=== PATIENT | female | born 1940 | race Caucasian/White ===

== ENCOUNTER → 2017-06-19 | Outpatient (CLI) | payer MEDICARE ==
[~2017-06-19] MED LIST: ALLERGY RELIEF10 M1 PO; ATIVAN0.5 MG PO; AUGMENTIN 875875 MG PO; CYCLOBENZAPRINE10 MG PO; EC NAPROSYN500 MG PO; ECOTRIN325 MG PO; ETODOLAC400 MG PO; GLIPIZIDE10 MG PO; GLIPIZIDE2.5 MG PO; GLIPIZIDE5 MG PO; GLUCOTROL10 MG PO; GLUCOTROL5 MG PO; HYDROCODONE BIT1 T11 PO; LOVENOX30 MG/0.3 SC; MAXZIDE PO; METFORMIN1000 MG PO; METFORMIN500 MG PO; MOTRIN 600 MG E4 TAB PO; MOTRIN600 MG PO; NAPROSYN500 MG PO; NORCO 325 MG-51 TAB PO; PERCOCET 325 MG1 TA8 PO; POTASSIUM20 MEQ PO; PRAVACHOL20 MG PO; PRILOSEC20 M1 PO; TAZTIA XT180 MG PO; TIAZAC180 MG PO; TRIAMTERENE/HCT1 TA3 PO; VICODIN 5/500 505 MG PO; ZESTRIL20 MG PO
== END | disposition home or self-care (01) ==
LOC: RAD 10:49
DX: M19.012 Primary osteoarthritis, left shoulder (principal)

== ENCOUNTER 2017-12-17 22:02 | Emergency (ER) | payer MEDICARE ==
[~2017-12-17] VITALS: Ht 160 cm; Wt 74.8 kg
[2017-12-18] MEDS ORDERED: NORCO 5-325 TA1 EACH PO (00:36)
== END 2017-12-18 00:50 | disposition home or self-care (01) ==
LOC: ED 22:02
DX: M25.512 Pain in left shoulder (principal); I10 Essential (primary) hypertension; E11.9 Type 2 diabetes mellitus without complications; Z96.642 Presence of left artificial hip joint; Z90.710 Acquired absence of both cervix and uterus; Z98.890 Other specified postprocedural states; Z79.899 Other long term (current) drug therapy

== ENCOUNTER 2017-12-25 10:27 | Emergency (ER) | payer MEDICARE ==
[~2017-12-25] VITALS: Ht 157.4 cm; Wt 77.1 kg
[~2017-12-25 10:27] MED LIST changes: +NORCO 5-325 TA1 EACH PO
[2017-12-25] MEDS ORDERED: VALTREX1000 MG PO (10:43)
== END 2017-12-25 10:50 | disposition home or self-care (01) ==
LOC: ED 10:27
DX: B02.9 Zoster without complications (principal); I10 Essential (primary) hypertension; E11.9 Type 2 diabetes mellitus without complications; Z98.890 Other specified postprocedural states; Z90.710 Acquired absence of both cervix and uterus; Z96.642 Presence of left artificial hip joint; Z79.899 Other long term (current) drug therapy

== ENCOUNTER 2018-04-15 08:50 | Emergency (ER) | payer MEDICARE ==
[~2018-04-15] VITALS: Ht 165.1 cm; Wt 74.8 kg
--- NOTE | ~2018-04-15 | EKG ---
[place], [place] ELECTROCARDIOGRAM REPORT NAME: GERMAN ORANTES UNIT #: [id number] ROOM: DOCTOR: OSCAR DRAFT REPORT BIRTHDATE: [birth year] [facility] Test Date: 2018-04-15 Test Time: 09:32:45 Pat Name: GERMAN ORANTES Department: Room: Gender: F Order Manager: NIXON : 1940 Requested By: BONIFACIO WANG Order Number: [id number] Reading MD: Measurements Intervals [place] Rate: 71 P: 38 CT: 185 QRS: 11 QRSD: 94 T: 25 QT: 394 QTc: 429 Interpretive Statements Sinus rhythm LVH by voltage No previous ECG available for comparison CM:EKGRPT:ELECTROCARDIOGRAM REPORT 1 1 BONIFACIO MOORE DRAFT REPORT BONIFACIO WANG M.D.
[~2018-04-15 08:50] MED LIST changes: +VALTREX1000 MG PO
[2018-04-15] MEDS ORDERED: DULOXETINE HCL20 MG PO (09:00)
[2018-04-15] MEDS ORDERED: HUMALOG100 UNIT/1 SQ (09:01)
[2018-04-15] MEDS ORDERED: GABAPENTIN400 MG PO (09:01)
[2018-04-15] MEDS ORDERED: VOLTAREN100 GM T (09:02)
[2018-04-15] MEDS ORDERED: ATENOLOL50 M1 PO (09:02)
[2018-04-15] MEDS ORDERED: MONTELUKAST SOD10 MG PO (09:03)
[2018-04-15] MEDS ORDERED: VICTOZA 2-0.6 MG/0.1 SC (09:03)
[2018-04-15] MEDS ORDERED: LANTUS SOL100 UNIT/1 SQ (09:03)
[2018-04-15 09:45] LABS: BASO # 0.1 10*3/uL (0.0-0.1); BASO % 0.5 % (0.0-1.0); EOS # 0.2 10*3/uL (0.0-0.4); EOS % 2.4 % (1.0-4.0); HEMATOCRIT 31.9 % (37.0-47.0); HEMOGLOBIN 10.8 g/dl (12.0-16.0); LYMPH # 1.8 10*3/uL (1.3-4.4); LYMPH % 19.1 % (27.0-41.0); MEAN CELL VOLUME 85.5 fl (81.0-99.0); MEAN CORPUSCULAR HGB CONC 33.9 g/dl (33.0-37.0); MEAN PLATELET VOLUME 10.3 fl (9.6-12.3); MONO # 0.7 10*3/uL (0.1-1.0); NEUT # 6.6 10*3/uL (2.3-7.9); NEUT % 70.1 % (47.0-73.0); PLATELET COUNT AUTOMATED 376 10*3/uL (130-400); RED BLOOD COUNT 3.73 10*6/uL (4.10-5.10); RED CELL DISTRI WIDTH 13.4 % (0-14.5); WHITE BLOOD COUNT 9.4 10*3/uL (4.8-10.8)
[2018-04-15 10:01] LABS: ALBUMIN 3.7 gm/dl (3.1-4.5); CREATININE 1.09 mg/dL (0.55-1.02); POTASSIUM 4.1 mmol/L (3.5-5.1)
[2018-06-10] MEDS ORDERED: AUGMENTIN 875875 MG PO (16:50)
[2018-06-10] MEDS ORDERED: FLONASE ALLERG9.9 ML NAS (16:50)
== END 2018-04-15 12:00 | disposition home or self-care (01) ==
LOC: ED 08:50
PROVIDERS: Emergency Medicine
DX: S62.647A Nondisplaced fracture of proximal phalanx of left little finger, initial encounter for closed fracture (principal); M25.512 Pain in left shoulder; R51 Headache; M54.2 Cervicalgia; R42 Dizziness and giddiness; R11.0 Nausea; I10 Essential (primary) hypertension; E11.9 Type 2 diabetes mellitus without complications; Z79.899 Other long term (current) drug therapy; Z79.4 Long term (current) use of insulin; W01.0XXA Fall on same level from slipping, tripping and stumbling without subsequent striking against object, initial encounter; Y93.89 Activity, other specified; Y92.89 Other specified places as the place of occurrence of the external cause; Y99.8 Other external cause status

== ENCOUNTER 2018-04-21 12:36 | Emergency (ER) | payer OTHER, MEDICARE ==
[~2018-04-21] VITALS: Ht 165.1 cm; Wt 74.8 kg
[~2018-04-21 12:36] MED LIST changes: +ATENOLOL50 M1 PO; +DULOXETINE HCL20 MG PO; +GABAPENTIN400 MG PO; +HUMALOG100 UNIT/1 SQ; +LANTUS SOL100 UNIT/1 SQ; +MONTELUKAST SOD10 MG PO; +VICTOZA 2-0.6 MG/0.1 SC; +VOLTAREN100 GM T
[2018-04-21] MEDS ORDERED: NAPROSYN500 MG PO (13:58)
[2018-04-21] MEDS ORDERED: TYLENOL325 M1 PO (13:58)
[2018-06-10] MEDS ORDERED: FLONASE ALLERG9.9 ML NAS (16:50)
[2018-06-10] MEDS ORDERED: AUGMENTIN 875875 MG PO (16:50)
== END 2018-04-21 14:40 | disposition home or self-care (01) ==
LOC: ED 12:36
DX: M47.892 Other spondylosis, cervical region (principal); M41.86 Other forms of scoliosis, lumbar region; M46.86 Other specified inflammatory spondylopathies, lumbar region; E11.9 Type 2 diabetes mellitus without complications; I10 Essential (primary) hypertension; M81.0 Age-related osteoporosis without current pathological fracture; Z79.4 Long term (current) use of insulin; Z79.899 Other long term (current) drug therapy

== ENCOUNTER → 2018-06-25 | Outpatient (CLI) | payer MEDICARE ==
[~2018-06-25] MED LIST changes: +FLONASE ALLERG9.9 ML NAS; +TYLENOL325 M1 PO
== END | disposition home or self-care (01) ==
LOC: MRI 02:08
DX: R90.82 White matter disease, unspecified (principal)

== ENCOUNTER → 2018-10-25 | Outpatient (CLI) | payer OTHER ==
[~2018-10-25] MED LIST changes: +AMLODIPINE BESY10 MG PO; +AVPAK AZITHROM250 MG PO; +BASAG SOL SC; +COZAAR100 MG PO; +HYDROCHLOROTHIA25 M1 PO; +Hydralazine Hyd25 MG PO; +LORAZEPAM0.5 MG PO; +Lidoderm 5% Patch T; +MUCINEX ER600 MG PO; +PRAVASTATIN SOD20 MG PO; +ROPINIROLE HYDRO1 MG PO; +VITAMIN D31000 UNI1 PO
[2018-10-25 13:03] LABS: ALBUMIN 3.7 gm/dl (3.1-4.5); CREATININE 1.23 mg/dL (0.55-1.02); PHOSPHOROUS 3.8 mg/dL (2.5-4.9); POTASSIUM 4.2 mmol/L (3.5-5.1)
[2018-10-25 13:09] LABS: BASO # 0.1 10*3/uL (0.0-0.1); BASO % 0.7 % (0.0-1.0); EOS # 0.2 10*3/uL (0.0-0.4); EOS % 2.4 % (1.0-4.0); HEMATOCRIT 31.2 % (37.0-47.0); HEMOGLOBIN 10.1 g/dl (12.0-16.0); LYMPH # 1.8 10*3/uL (1.3-4.4); LYMPH % 21.7 % (27.0-41.0); MEAN CELL VOLUME 86.7 fl (81.0-99.0); MEAN CORPUSCULAR HGB 28.1 pg (27.0-31.0); MEAN CORPUSCULAR HGB CONC 32.4 g/dl (33.0-37.0); MEAN PLATELET VOLUME 10.5 fl (9.6-12.3); MONO # 0.7 10*3/uL (0.1-1.0); MONO % 8.5 % (3.0-9.0); NEUT # 5.6 10*3/uL (2.3-7.9); PLATELET COUNT AUTOMATED 397 10*3/uL (130-400); RED CELL DISTRI WIDTH 13.8 % (0-14.5); WHITE BLOOD COUNT 8.5 10*3/uL (4.8-10.8)
[2018-10-25 13:40] LABS: FERRITIN 14.1 ng/mL (10.0-291.0); PTH INTACT 58.4 pg/mL (18.5-88.0); VITAMIN D, 25-HYDROXY 27.5 ng/mL (30-100)
[2018-10-25 16:38] LABS: BILIRUBIN NEGATIVE (NEGATIVE); BLOOD NEGATIVE (NEGATIVE); CLARITY CLEAR (CLEAR); COLOR YELLOW (YELLOW); GLUCOSE NEGATIVE (NEGATIVE); KETONE NEGATIVE (NEGATIVE); LEUKO ESTERASE 1+ (NEGATIVE); NITRITE NEGATIVE (NEGATIVE); SPECIFIC GRAVITY >= 1.030 (1.005-1.030); UROBILINOGEN 0.2 E.U./dl (0.2-1.0)
[2018-10-25 16:46] LABS: BACTERIA 2+; WBC 31-40 wbc/hpf (0-5)
== END | disposition home or self-care (01) ==
LOC: LAB 12:13
PROVIDERS: Internal Medicine Nephrology
DX: E11.22 Type 2 diabetes mellitus with diabetic chronic kidney disease (principal); N18.3 Chronic kidney disease, stage 3 (moderate); D63.1 Anemia in chronic kidney disease; N25.81 Secondary hyperparathyroidism of renal origin; Z79.899 Other long term (current) drug therapy

== ENCOUNTER → 2018-12-05 | Outpatient (CLI) | payer OTHER | END | disposition home or self-care (01) | LOC: CARD 11-15 12:00 | DX: I34.0 Nonrheumatic mitral (valve) insufficiency (principal) ==

== ENCOUNTER → 2019-01-04 | Outpatient (CLI) | payer OTHER ==
[2019-01-04] VITALS (14 sets, daily range): BP systolic 153–180; BP diastolic 56–78
== END | disposition home or self-care (01) ==
LOC: TRNFUSION 00:52
DX: D64.9 Anemia, unspecified (principal); E11.9 Type 2 diabetes mellitus without complications; I10 Essential (primary) hypertension; K21.9 Gastro-esophageal reflux disease without esophagitis; M19.90 Unspecified osteoarthritis, unspecified site; E78.00 Pure hypercholesterolemia, unspecified

== ENCOUNTER → 2019-01-11 | Outpatient (CLI) | payer OTHER ==
--- NOTE | ~2019-01-11 | PF ---
[place], [place] PULMONARY FUNCTION TEST [id number] UNIT #: [id number] ROOM: DOCTOR: LUCERO HINTON MD,GIOVANNI BIRTHDATE: [birth year] DOS: 01/11/2019 PULMONARY FUNCTION TEST ORDERED BY: Dr. Shay Bowman. HISTORY: The patient is a 72-year-old outpatient, female, height of 63 inches, weight of 186 pounds, has a pulmonary function test for diagnosis and assessment of shortness of breath with exertion. There was no past tobacco use. SPIROMETRY: The FVC of 1.71 liters, 68% predicted value. The FEV1 of 1.38 liters as 70% of predicted value. The ratio of FEV1/FVC recorded as 81% post-bronchodilator. No significant improvement noted of any clinical significance. Flow volume loop for assessment with current pulmonary function tests was noted as mild obstructive airway pattern. The lung volumes, thoracic gas volume was recorded as 62%, residual volume of 33%, total lung capacity 59%. The patient's lung diffusion recorded 47% without correction of carbon monoxide hemoglobin value. Airway resistance and conductance were noted normal. FINAL IMPRESSION: Current test was noted with finding consistent with moderate restrictive lung disease to be clinically correlated to the clinical history and radiology data. GIOVANNI BARKER MD CM:PFREPORT:PULMONARY FUNCTION TEST [id number] GIOVANNI HINTON MD
== END | disposition home or self-care (01) ==
LOC: CP 10:20
DX: R06.02 Shortness of breath (principal)

== ENCOUNTER → 2020-01-24 | Outpatient (CLI) | payer MEDICARE ==
[2020-01-24 13:17] LABS: BASO # 0.1 10*3/uL (0.0-0.1); BASO % 0.6 % (0.0-1.0); EOS # 0.3 10*3/uL (0.0-0.4); EOS % 2.8 % (1.0-4.0); HEMATOCRIT 35.2 % (37.0-47.0); LYMPH # 1.7 10*3/uL (1.3-4.4); LYMPH % 18.2 % (27.0-41.0); MEAN CELL VOLUME 91.9 fl (81.0-99.0); MEAN CORPUSCULAR HGB 30.3 pg (27.0-31.0); MEAN PLATELET VOLUME 10.2 fl (9.6-12.3); MONO # 0.7 10*3/uL (0.1-1.0); MONO % 7.7 % (3.0-9.0); NEUT # 6.6 10*3/uL (2.3-7.9); NEUT % 69.4 % (47.0-73.0); PLATELET COUNT AUTOMATED 419 10*3/uL (130-400); RED BLOOD COUNT 3.83 10*6/uL (4.10-5.10); RED CELL DISTRI WIDTH 13.1 % (0-14.5); WHITE BLOOD COUNT 9.4 10*3/uL (4.8-10.8)
[2020-01-24 13:18] LABS: BILIRUBIN NEGATIVE (NEGATIVE); BLOOD TRACE-LYSED (NEGATIVE); CLARITY CLOUDY (CLEAR); COLOR YELLOW (YELLOW); GLUCOSE NEGATIVE (NEGATIVE); KETONE NEGATIVE (NEGATIVE); SPECIFIC GRAVITY 1.015 (1.005-1.030)
[2020-01-24 13:19] LABS: LEUKO ESTERASE 3+ (NEGATIVE); NITRITE POSITIVE (NEGATIVE); UROBILINOGEN 0.2 E.U./dl (0.2-1.0)
[2020-01-24 13:27] LABS: BACTERIA 4+; WBC TNTC wbc/hpf (0-5)
[2020-01-24 13:29] LABS: ALBUMIN 4.2 gm/dl (3.1-4.5); CREATININE 1.95 mg/dL (0.55-1.02); POTASSIUM 4.1 mmol/L (3.5-5.1)
[2020-01-24 13:32] LABS: URINE CREATININE RANDOM 49.6 mg/dL
[2020-01-24 14:23] LABS: FERRITIN 929.2 ng/mL (10.0-291.0); PTH INTACT 68.6 pg/mL (18.5-88.0); VITAMIN D, 25-HYDROXY 18.5 ng/mL (30-100)
== END | disposition home or self-care (01) ==
LOC: LAB 12:38
PROVIDERS: Internal Medicine Nephrology
DX: N18.3 Chronic kidney disease, stage 3 (moderate) (principal); D63.1 Anemia in chronic kidney disease; N25.81 Secondary hyperparathyroidism of renal origin; E11.9 Type 2 diabetes mellitus without complications; Z79.899 Other long term (current) drug therapy

== ENCOUNTER → 2020-06-08 | Outpatient (CLI) | payer MEDICARE | END | disposition home or self-care (01) | LOC: CARD 09:30 | PROVIDERS: ATTEND Internal Medicine Cardiovascular Disease | DX: I08.0 Rheumatic disorders of both mitral and aortic valves (principal) ==

== ENCOUNTER → 2021-01-06 | Outpatient (CLI) | payer MEDICARE ==
[2021-01-06 12:43] LABS: BASO # 0.1 10*3/uL (0.0-0.1); BASO % 0.5 % (0.0-1.0); EOS # 0.4 10*3/uL (0.0-0.4); EOS % 3.8 % (1.0-4.0); HEMATOCRIT 30.2 % (37.0-47.0); LYMPH # 1.2 10*3/uL (1.3-4.4); LYMPH % 10.8 % (27.0-41.0); MEAN CELL VOLUME 98.7 fl (81.0-99.0); MEAN CORPUSCULAR HGB 30.7 pg (27.0-31.0); MEAN CORPUSCULAR HGB CONC 31.1 g/dl (33.0-37.0); MEAN PLATELET VOLUME 9.5 fl (9.6-12.3); MONO % 8.4 % (3.0-9.0); NEUT # 8.5 10*3/uL (2.3-7.9); NEUT % 74.1 % (47.0-73.0); NUCLEATED RED BLOOD CELL 0.2 % (0.0-0.0); PLATELET COUNT AUTOMATED 462 10*3/uL (130-400); RED BLOOD COUNT 3.06 10*6/uL (4.10-5.10); RED CELL DISTRI WIDTH 14.9 % (0-14.5); WHITE BLOOD COUNT 11.5 10*3/uL (4.8-10.8)
== END | disposition home or self-care (01) ==
LOC: LAB 12:26 → US 13:00
PROVIDERS: ATTEND Orthopaedic Surgery
DX: I82.409 Acute embolism and thrombosis of unspecified deep veins of unspecified lower extremity (principal); R06.02 Shortness of breath; R22.42 Localized swelling, mass and lump, left lower limb

== ENCOUNTER → 2021-05-11 | Outpatient (CLI) | payer MEDICARE | END | disposition home or self-care (01) | LOC: CARD 04-23 14:00 | PROVIDERS: ATTEND Physician Assistant | DX: R01.1 Cardiac murmur, unspecified (principal) ==

== ENCOUNTER 2021-08-16 13:30 | Emergency (ER) | payer MEDICARE ==
[~2021-08-16] VITALS: Ht 165.1 cm; Wt 90.7 kg
== END 2021-08-16 16:54 | disposition home or self-care (01) ==
LOC: ED 13:30
DX: S82.831A Other fracture of upper and lower end of right fibula, initial encounter for closed fracture (principal); Z79.899 Other long term (current) drug therapy; Z90.710 Acquired absence of both cervix and uterus; Z98.890 Other specified postprocedural states; W18.39XA Other fall on same level, initial encounter; Y93.89 Activity, other specified; Y92.89 Other specified places as the place of occurrence of the external cause; Y99.8 Other external cause status

== ENCOUNTER → 2021-09-13 | Outpatient (CLI) | payer SELFPAY | END | disposition home or self-care (01) | LOC: ORTHO 00:17 | PROVIDERS: ATTEND Orthopaedic Surgery | DX: R22.42 Localized swelling, mass and lump, left lower limb (principal); M77.31 Calcaneal spur, right foot ==

== ENCOUNTER → 2021-10-18 | Outpatient (CLI) | payer SELFPAY | END | disposition home or self-care (01) | LOC: ORTHO 00:36 | PROVIDERS: ATTEND Orthopaedic Surgery | DX: S82.831D Other fracture of upper and lower end of right fibula, subsequent encounter for closed fracture with routine healing (principal); X58.XXXD Exposure to other specified factors, subsequent encounter ==

== ENCOUNTER 2022-06-09 12:24 | Inpatient (IN) | payer MEDICARE ==
[~2022-06-09] VITALS: Ht 165.1 cm; Wt 91.7 kg
[2022-06-09 12:37] VITALS: BP 141/53
[2022-06-09 12:55] LABS: BASO % 0.3 % (0.0-1.0); EOS # 0.1 10*3/uL (0.0-0.4); HEMATOCRIT 24.1 % (37.0-47.0); LYMPH # 1.3 10*3/uL (1.3-4.4); LYMPH % 11.2 % (27.0-41.0); MEAN CELL VOLUME 93.4 fl (81.0-99.0); MEAN CORPUSCULAR HGB 30.2 pg (27.0-31.0); MEAN CORPUSCULAR HGB CONC 32.4 g/dl (33.0-37.0); MONO # 0.6 10*3/uL (0.1-1.0); MONO % 4.9 % (3.0-9.0); NEUT # 9.4 10*3/uL (2.3-7.9); NEUT % 81.6 % (47.0-73.0); PLATELET COUNT AUTOMATED 367 10*3/uL (130-400); RED BLOOD COUNT 2.58 10*6/uL (4.10-5.10); RED CELL DISTRI WIDTH 15.9 % (0-14.5); WHITE BLOOD COUNT 11.5 10*3/uL (4.8-10.8)
[2022-06-09 13:09] LABS: ACT PARTIAL THROMBO TIME 26.8 SECONDS (20.0-32.1)
[2022-06-09 13:12] LABS: ALKALINE PHOSPHATASE 63 U/L (45-117); BUN 54 mg/dl (7-24); CHLORIDE 105 mmol/L (98-107); CREATININE 2.76 mg/dL (0.55-1.02); LIPASE 43 U/L (73-393); POTASSIUM 4.2 mmol/L (3.5-5.1); SGPT/ALT 44 U/L (12-78); SODIUM 133 mmol/L (136-145); TOTAL PROTEIN 6.5 gm/dL (6.4-8.2)
[2022-06-09 15:05] VITALS: BP 131/42
[2022-06-09 19:59] VITALS: BP 143/55
[2022-06-09 21:00] VITALS: BP 150/58
[2022-06-10] VITALS (11 sets, daily range): BP systolic 114–173; BP diastolic 45–70
[2022-06-10 06:37] LABS: BILIRUBIN Negative (Negative); BLOOD Negative (Negative); CLARITY Clear (Clear); COLOR Yellow (Yellow); GLUCOSE Negative (Negative); KETONE Negative (Negative); LEUKO ESTERASE Trace (Negative); NITRITE Negative (Negative); SPECIFIC GRAVITY 1.015 (1.001-1.030); UROBILINOGEN 0.2 E.U./dl (0.0-1.0)
[2022-06-10 07:08] LABS: HEMATOCRIT 21.9 % (37.0-47.0); MEAN CELL VOLUME 94.4 fl (81.0-99.0); MEAN CORPUSCULAR HGB 29.7 pg (27.0-31.0); MEAN CORPUSCULAR HGB CONC 31.5 g/dl (33.0-37.0); MEAN PLATELET VOLUME 10.3 fl (9.6-12.3); PLATELET COUNT AUTOMATED 326 10*3/uL (130-400); RED BLOOD COUNT 2.32 10*6/uL (4.10-5.10); RED CELL DISTRI WIDTH 15.8 % (0-14.5); WHITE BLOOD COUNT 8.6 10*3/uL (4.8-10.8)
[2022-06-10 07:16] LABS: CREATININE 2.65 mg/dL (0.55-1.02); POTASSIUM 3.7 mmol/L (3.5-5.1); TOTAL PROTEIN 5.9 gm/dL (6.4-8.2)
[2022-06-10 07:17] LABS: MANUAL DIFF REFLEX YES
[2022-06-10 07:36] LABS: BACTERIA 2+; CALCIUM OXALATE CRYSTALS 2+; WBC 16-20 wbc/hpf (0-5)
[2022-06-10 07:38] LABS: BASOPHILS 1 % (0-1); TOTAL CELLS COUNTED 100 #CELLS
[2022-06-10 07:39] LABS: PLATELET SUFFICIENCY NORMAL (NORMAL)
[2022-06-10] MEDS ORDERED: CALPHRON667 MG PO (08:35)
[2022-06-10] MEDS ORDERED: BUMETANIDE1 MG PO (08:35)
[2022-06-10] MEDS ORDERED: Rocaltrol0.25 MCG PO (08:35)
[2022-06-10] MEDS ORDERED: KLOR-CON M1010 ME1 PO (08:36)
[2022-06-10] MEDS ORDERED: TOUJEO SOL300 UNIT/1 SQ (08:36)
[2022-06-10] MEDS ORDERED: HYDROCODONE-AC1 EAC1 PO (08:37)
[2022-06-10] MEDS ORDERED: HUMALOG100 UNIT/1 SC (08:38)
[2022-06-10] MEDS ORDERED: COREG12.5 M1 PO (09:45)
[2022-06-11] VITALS: BP 149/54; BP 183/56
[2022-06-11 06:00] LABS: CREATININE 2.29 mg/dL (0.55-1.02); POTASSIUM 3.8 mmol/L (3.5-5.1)
[2022-06-11 06:11] LABS: BASO # 0.1 10*3/uL (0.0-0.1); BASO % 0.6 % (0.0-1.0); EOS # 0.2 10*3/uL (0.0-0.4); EOS % 1.8 % (1.0-4.0); HEMATOCRIT 24.2 % (37.0-47.0); LYMPH # 1.3 10*3/uL (1.3-4.4); LYMPH % 14.1 % (27.0-41.0); MEAN CELL VOLUME 93.4 fl (81.0-99.0); MEAN CORPUSCULAR HGB 30.1 pg (27.0-31.0); MEAN CORPUSCULAR HGB CONC 32.2 g/dl (33.0-37.0); MEAN PLATELET VOLUME 10.9 fl (9.6-12.3); MONO # 0.9 10*3/uL (0.1-1.0); MONO % 9.6 % (3.0-9.0); NEUT # 6.8 10*3/uL (2.3-7.9); NEUT % 72.1 % (47.0-73.0); PLATELET COUNT AUTOMATED 345 10*3/uL (130-400); RED BLOOD COUNT 2.59 10*6/uL (4.10-5.10); RED CELL DISTRI WIDTH 16.2 % (0-14.5); WHITE BLOOD COUNT 9.5 10*3/uL (4.8-10.8)
[2022-06-11 08:00] VITALS: BP 141/50
[2022-06-11 12:00] VITALS: BP 140/48
[2022-06-11 16:00] VITALS: BP 146/56
[2022-06-11 20:00] VITALS: BP 159/51
[2022-06-12] VITALS: BP 183/56
[2022-06-12 06:23] LABS: BASO # 0.1 10*3/uL (0.0-0.1); BASO % 0.6 % (0.0-1.0); EOS # 0.2 10*3/uL (0.0-0.4); EOS % 1.9 % (1.0-4.0); HEMATOCRIT 23.2 % (37.0-47.0); LYMPH # 1.2 10*3/uL (1.3-4.4); LYMPH % 11.9 % (27.0-41.0); MEAN CELL VOLUME 93.9 fl (81.0-99.0); MEAN CORPUSCULAR HGB CONC 31.9 g/dl (33.0-37.0); MEAN PLATELET VOLUME 10.3 fl (9.6-12.3); MONO # 0.9 10*3/uL (0.1-1.0); MONO % 8.4 % (3.0-9.0); NEUT # 7.7 10*3/uL (2.3-7.9); PLATELET COUNT AUTOMATED 337 10*3/uL (130-400); RED BLOOD COUNT 2.47 10*6/uL (4.10-5.10); RED CELL DISTRI WIDTH 16.1 % (0-14.5); WHITE BLOOD COUNT 10.3 10*3/uL (4.8-10.8)
[2022-06-12 06:36] LABS: CREATININE 2.13 mg/dL (0.55-1.02); POTASSIUM 3.7 mmol/L (3.5-5.1)
[2022-06-12 08:00] VITALS: BP 156/56
[2022-06-12 12:00] VITALS: BP 135/52
[2022-06-12 16:00] VITALS: BP 137/54
[2022-06-12 20:00] VITALS: BP 156/51
[2022-06-13] VITALS: BP 149/43
[2022-06-13 07:25] LABS: BASO # 0.1 10*3/uL (0.0-0.1); BASO % 0.5 % (0.0-1.0); EOS # 0.3 10*3/uL (0.0-0.4); EOS % 3.2 % (1.0-4.0); HEMATOCRIT 22.7 % (37.0-47.0); LYMPH # 1.4 10*3/uL (1.3-4.4); LYMPH % 14.9 % (27.0-41.0); MEAN CELL VOLUME 95.4 fl (81.0-99.0); MEAN CORPUSCULAR HGB 29.8 pg (27.0-31.0); MEAN CORPUSCULAR HGB CONC 31.3 g/dl (33.0-37.0); MEAN PLATELET VOLUME 10.7 fl (9.6-12.3); MONO # 0.9 10*3/uL (0.1-1.0); MONO % 10.1 % (3.0-9.0); NEUT # 6.4 10*3/uL (2.3-7.9); NEUT % 68.9 % (47.0-73.0); PLATELET COUNT AUTOMATED 337 10*3/uL (130-400); RED BLOOD COUNT 2.38 10*6/uL (4.10-5.10); RED CELL DISTRI WIDTH 16.2 % (0-14.5); WHITE BLOOD COUNT 9.3 10*3/uL (4.8-10.8)
[2022-06-13 07:43] LABS: CREATININE 1.96 mg/dL (0.55-1.02); POTASSIUM 3.5 mmol/L (3.5-5.1)
[2022-06-13 08:00] VITALS: BP 135/43
[2022-06-13 12:00] VITALS: BP 126/58
[2022-06-13 16:00] VITALS: BP 127/35
[2022-06-13 20:00] VITALS: BP 154/45
[2022-06-14] VITALS (7 sets, daily range): BP systolic 123–143; BP diastolic 31–62
[2022-06-14] MEDS ORDERED: DULOXETINE HCL20 MG PO (00:54)
[2022-06-14] MEDS ORDERED: VITAMIN D350 MC2 PO (00:54)
[2022-06-14 06:31] LABS: MEAN CELL VOLUME 96.5 fl (81.0-99.0); MEAN CORPUSCULAR HGB 29.8 pg (27.0-31.0); MEAN CORPUSCULAR HGB CONC 30.9 g/dl (33.0-37.0); MEAN PLATELET VOLUME 10.4 fl (9.6-12.3); PLATELET COUNT AUTOMATED 321 10*3/uL (130-400); RED BLOOD COUNT 2.28 10*6/uL (4.10-5.10); RED CELL DISTRI WIDTH 16.2 % (0-14.5); WHITE BLOOD COUNT 9.5 10*3/uL (4.8-10.8)
[2022-06-14 06:33] LABS: CREATININE 2.18 mg/dL (0.55-1.02); POTASSIUM 3.9 mmol/L (3.5-5.1)
[2022-06-14 06:37] LABS: MANUAL DIFF REFLEX YES
[2022-06-14 07:21] LABS: BASOPHILS 1 % (0-1); OVALOCYTES FEW; PLATELET SUFFICIENCY NORMAL (NORMAL); POLYCHROMASIA SLIGHT; TOTAL CELLS COUNTED 100 #CELLS
[2022-06-14] MEDS ORDERED: BUMETANIDE2 MG PO (14:14)
[2022-06-14] MEDS ORDERED: Carafate1 GM PO (14:14)
[2022-06-14] MEDS ORDERED: DOXYCYCLINE HY100 M3 PO (14:14)
[2022-06-14] MEDS ORDERED: PROTONIX40 MG PO (14:14)
== END 2022-06-14 15:07 | disposition home health service (06) | DRG 291 ==
LOC: ED 12:24 → EDHOLD 14:14 → 5E 14:14
PROVIDERS: Emergency Medicine; Family Medicine; Internal Medicine; Student in an Organized Health Care Education/Training Program; ADMIT Internal Medicine; ATTEND Internal Medicine
PROC: 5A09357 Assistance with Respiratory Ventilation, Less than 24 Consecutive Hours, Continuous Positive Airway Pressure (ICD-10-PCS; 2022-06-09)
PROC: 30233N1 Transfusion of Nonautologous Red Blood Cells into Peripheral Vein, Percutaneous Approach (ICD-10-PCS; principal; 2022-06-10)
PROC: 5A09357 Assistance with Respiratory Ventilation, Less than 24 Consecutive Hours, Continuous Positive Airway Pressure (ICD-10-PCS; 2022-06-12)
PROC: 5A09357 Assistance with Respiratory Ventilation, Less than 24 Consecutive Hours, Continuous Positive Airway Pressure (ICD-10-PCS; 2022-06-13)
DX: I13.0 Hypertensive heart and chronic kidney disease with heart failure and stage 1 through stage 4 chronic kidney disease, or unspecified chronic kidney disease (principal); I50.33 Acute on chronic diastolic (congestive) heart failure; J96.01 Acute respiratory failure with hypoxia; N17.0 Acute kidney failure with tubular necrosis; E44.0 Moderate protein-calorie malnutrition; E87.1 Hypo-osmolality and hyponatremia; N18.4 Chronic kidney disease, stage 4 (severe); E11.22 Type 2 diabetes mellitus with diabetic chronic kidney disease; J44.9 Chronic obstructive pulmonary disease, unspecified; F41.9 Anxiety disorder, unspecified; M81.0 Age-related osteoporosis without current pathological fracture; M47.896 Other spondylosis, lumbar region; E11.65 Type 2 diabetes mellitus with hyperglycemia; D64.9 Anemia, unspecified; E83.41 Hypermagnesemia; M47.812 Spondylosis without myelopathy or radiculopathy, cervical region; J01.90 Acute sinusitis, unspecified; Z90.49 Acquired absence of other specified parts of digestive tract; Z79.4 Long term (current) use of insulin; Z88.8 Allergy status to other drugs, medicaments and biological substances; Z90.710 Acquired absence of both cervix and uterus; Z68.35 Body mass index [BMI] 35.0-35.9, adult

== ENCOUNTER 2022-07-12 08:45 | Emergency (ER) | payer MEDICARE ==
[~2022-07-12] VITALS: Wt 89.4 kg
[~2022-07-12 08:45] MED LIST changes: +BUMETANIDE1 MG PO; +BUMETANIDE2 MG PO; +CALPHRON667 MG PO; +COREG12.5 M1 PO; +Carafate1 GM PO; +DOXYCYCLINE HY100 M3 PO; +HUMALOG100 UNIT/1 SC; +HYDROCODONE-AC1 EAC1 PO; +KLOR-CON M1010 ME1 PO; +PROTONIX40 MG PO; +Rocaltrol0.25 MCG PO; +TOUJEO SOL300 UNIT/1 SQ; +VITAMIN D350 MC2 PO
[2022-07-12 09:22] LABS: BASO % 0.5 % (0.0-1.0); EOS # 0.1 10*3/uL (0.0-0.4); EOS % 0.9 % (1.0-4.0); HEMATOCRIT 23.7 % (37.0-47.0); LYMPH # 1.3 10*3/uL (1.3-4.4); LYMPH % 14.5 % (27.0-41.0); MEAN CELL VOLUME 91.5 fl (81.0-99.0); MEAN CORPUSCULAR HGB 31.7 pg (27.0-31.0); MEAN CORPUSCULAR HGB CONC 34.6 g/dl (33.0-37.0); MEAN PLATELET VOLUME 10.1 fl (9.6-12.3); MONO # 0.6 10*3/uL (0.1-1.0); MONO % 6.2 % (3.0-9.0); NEUT # 6.8 10*3/uL (2.3-7.9); NEUT % 76.9 % (47.0-73.0); PLATELET COUNT AUTOMATED 378 10*3/uL (130-400); RED BLOOD COUNT 2.59 10*6/uL (4.10-5.10); RED CELL DISTRI WIDTH 15.2 % (0-14.5); WHITE BLOOD COUNT 8.8 10*3/uL (4.8-10.8)
[2022-07-12 09:37] LABS: CREATININE 2.27 mg/dL (0.55-1.02); POTASSIUM 4.2 mmol/L (3.4-5.1); TOTAL PROTEIN 6.2 gm/dL (6.0-8.0)
[2022-07-12 10:25] LABS: BILIRUBIN Negative (Negative); BLOOD Negative (Negative); CLARITY Clear (Clear); COLOR Yellow (Yellow); GLUCOSE Negative (Negative); KETONE Negative (Negative); LEUKO ESTERASE Negative (Negative); NITRITE Negative (Negative); SPECIFIC GRAVITY <= 1.005 (1.001-1.030); UROBILINOGEN 0.2 E.U./dl (0.0-1.0)
[2022-07-12 11:15] LABS: RBC 0-2 rbc/hpf (0-2); WBC 0-2 wbc/hpf (0-5)
== END 2022-07-12 11:47 | disposition home or self-care (01) ==
LOC: ED 08:45
PROVIDERS: Family Medicine
DX: R53.1 Weakness (principal); Z88.8 Allergy status to other drugs, medicaments and biological substances; Z90.710 Acquired absence of both cervix and uterus; Z90.49 Acquired absence of other specified parts of digestive tract; Z98.890 Other specified postprocedural states

== ENCOUNTER → 2022-10-28 | Outpatient (CLI) | payer MEDICARE ==
[~2022-10-28] MED LIST changes: +B12 ACTIVE1000 MCG PO; +CARVEDILOL3.125 MG PO; +CARVEDILOL6.25 MG PO; +CENTRUM SILVER1 EAC1 PO; +ELIQUIS5 M1 PO; +GOOD NEIGHBOR L10 MG PO; +HYDRALAZINE10 MG PO; +Humalog SQ; +ISORDIL10 M1 PO; +LOSARTAN POTAS100 M1 PO; +VICTOZA 3-0.6 MG/0.1 SQ; +VITAMIN C1000 M5 PO
== END | disposition home or self-care (01) ==
LOC: TELEHEALTH 01:12
PROVIDERS: ATTEND Internal Medicine
DX: D50.9 Iron deficiency anemia, unspecified (principal); I13.0 Hypertensive heart and chronic kidney disease with heart failure and stage 1 through stage 4 chronic kidney disease, or unspecified chronic kidney disease; E11.22 Type 2 diabetes mellitus with diabetic chronic kidney disease; N18.32 Chronic kidney disease, stage 3b; I50.21 Acute systolic (congestive) heart failure; E78.5 Hyperlipidemia, unspecified; K21.9 Gastro-esophageal reflux disease without esophagitis; Z86.16 Personal history of COVID-19; Z79.899 Other long term (current) drug therapy

== ENCOUNTER → 2022-11-24 | Outpatient (CLI) | payer MEDICARE ==
[2022-11-24 08:25] LABS: HEMATOCRIT 33.8 % (37.0-47.0)
== END | disposition home or self-care (01) ==
LOC: LAB 08:02
PROVIDERS: ATTEND Internal Medicine
DX: N18.31 Chronic kidney disease, stage 3a (principal); I50.21 Acute systolic (congestive) heart failure; D50.0 Iron deficiency anemia secondary to blood loss (chronic)

== ENCOUNTER → 2022-12-08 | Outpatient (CLI) | payer MEDICARE ==
[2022-12-08 07:42] LABS: HEMATOCRIT 34.1 % (37.0-47.0)
[2022-12-08 08:37] LABS: POTASSIUM 4.3 mmol/L (3.4-5.1)
== END | disposition home or self-care (01) ==
LOC: LAB 07:09
PROVIDERS: ATTEND Physician Assistant
DX: N18.32 Chronic kidney disease, stage 3b (principal); I50.21 Acute systolic (congestive) heart failure; D50.0 Iron deficiency anemia secondary to blood loss (chronic)

== ENCOUNTER → 2022-12-22 | Outpatient (CLI) | payer MEDICARE ==
[2022-12-22 13:19] LABS: HEMATOCRIT 34.9 % (37.0-47.0)
== END | disposition home or self-care (01) ==
LOC: LAB 12:59
PROVIDERS: ATTEND Internal Medicine
DX: I50.21 Acute systolic (congestive) heart failure (principal); N18.32 Chronic kidney disease, stage 3b; D50.0 Iron deficiency anemia secondary to blood loss (chronic)

== ENCOUNTER → 2022-12-30 | Outpatient (CLI) | payer MEDICARE | END | disposition home or self-care (01) | LOC: TELEHEALTH 01:56 | PROVIDERS: ATTEND Internal Medicine | DX: D50.0 Iron deficiency anemia secondary to blood loss (chronic) (principal); I50.21 Acute systolic (congestive) heart failure; N18.32 Chronic kidney disease, stage 3b; Z79.899 Other long term (current) drug therapy ==

== ENCOUNTER → 2023-01-05 | Outpatient (CLI) | payer MEDICARE ==
[2023-01-05 08:44] LABS: HEMATOCRIT 32.9 % (37.0-47.0)
[2023-01-05 09:28] LABS: POTASSIUM 4.4 mmol/L (3.4-5.1)
== END | disposition home or self-care (01) ==
LOC: LAB 08:01
PROVIDERS: ATTEND Internal Medicine
DX: I50.21 Acute systolic (congestive) heart failure (principal); N18.32 Chronic kidney disease, stage 3b; D50.0 Iron deficiency anemia secondary to blood loss (chronic)

== ENCOUNTER → 2023-01-19 | Outpatient (CLI) | payer MEDICARE ==
[~2023-01-19] MED LIST changes: +ZITHROMAX TRI-500 M1 PO
[2023-01-19 08:00] LABS: HEMATOCRIT 26.6 % (37.0-47.0)
== END | disposition home or self-care (01) ==
LOC: LAB 07:43
PROVIDERS: ATTEND Internal Medicine
DX: I50.21 Acute systolic (congestive) heart failure (principal); N18.32 Chronic kidney disease, stage 3b; D50.0 Iron deficiency anemia secondary to blood loss (chronic)

== ENCOUNTER → 2023-02-02 | Outpatient (CLI) | payer MEDICARE ==
[2023-02-02 08:41] LABS: BASO % 0.4 % (0.0-1.0); EOS # 0.5 10*3/uL (0.0-0.4); HEMATOCRIT 28.7 % (37.0-47.0); LYMPH # 1.2 10*3/uL (1.3-4.4); LYMPH % 13.2 % (27.0-41.0); MEAN CELL VOLUME 98.6 fl (81.0-99.0); MEAN CORPUSCULAR HGB 31.3 pg (27.0-31.0); MEAN CORPUSCULAR HGB CONC 31.7 g/dl (33.0-37.0); MEAN PLATELET VOLUME 9.9 fl (9.6-12.3); MONO # 0.8 10*3/uL (0.1-1.0); MONO % 8.5 % (3.0-9.0); NEUT # 6.6 10*3/uL (2.3-7.9); NEUT % 70.6 % (47.0-73.0); PLATELET COUNT AUTOMATED 315 10*3/uL (130-400); RED BLOOD COUNT 2.91 10*6/uL (4.10-5.10); WHITE BLOOD COUNT 9.3 10*3/uL (4.8-10.8)
[2023-02-02 08:42] LABS: BILIRUBIN Negative (Negative); BLOOD Negative (Negative); CLARITY Clear (Clear); COLOR Yellow (Yellow); GLUCOSE Negative (Negative); KETONE Negative (Negative); LEUKO ESTERASE 2+ (Negative); NITRITE Negative (Negative); PH 5.5 (4.5-8.0); UROBILINOGEN 0.2 E.U./dl (0.0-1.0)
[2023-02-02 08:49] LABS: URINE CREATININE RANDOM 89.98 mg/dL
[2023-02-02 08:57] LABS: BACTERIA 2+; FINE GRANULAR CAST 0-2; WBC 51-100 wbc/hpf (0-5)
[2023-02-02 08:58] LABS: HYALINE CAST 0-2
[2023-02-02 09:29] LABS: POTASSIUM 4.3 mmol/L (3.4-5.1)
[2023-02-02 09:30] LABS: VITAMIN D, 25-HYDROXY 35.2 ng/mL (30-100)
== END | disposition home or self-care (01) ==
LOC: LAB 07:59
PROVIDERS: ATTEND Internal Medicine Nephrology
DX: E11.22 Type 2 diabetes mellitus with diabetic chronic kidney disease (principal); N18.4 Chronic kidney disease, stage 4 (severe); D63.1 Anemia in chronic kidney disease; N25.81 Secondary hyperparathyroidism of renal origin; D50.0 Iron deficiency anemia secondary to blood loss (chronic); I50.21 Acute systolic (congestive) heart failure; Z79.899 Other long term (current) drug therapy

== ENCOUNTER → 2023-02-16 | Outpatient (CLI) | payer MEDICARE ==
[2023-02-16 08:42] LABS: HEMATOCRIT 29.2 % (37.0-47.0)
== END | disposition home or self-care (01) ==
LOC: LAB 08:16
PROVIDERS: ATTEND Internal Medicine
DX: D50.0 Iron deficiency anemia secondary to blood loss (chronic) (principal); I50.21 Acute systolic (congestive) heart failure; N18.32 Chronic kidney disease, stage 3b

== ENCOUNTER → 2023-02-18 | Outpatient (CLI) | payer MEDICARE | END | disposition home or self-care (01) | LOC: RAD 10:13 | PROVIDERS: ATTEND Specialist | DX: M17.0 Bilateral primary osteoarthritis of knee (principal); M19.011 Primary osteoarthritis, right shoulder; M16.11 Unilateral primary osteoarthritis, right hip; M47.816 Spondylosis without myelopathy or radiculopathy, lumbar region; Z96.642 Presence of left artificial hip joint ==

== ENCOUNTER → 2023-03-02 | Outpatient (CLI) | payer MEDICARE ==
[2023-03-02 08:23] LABS: HEMATOCRIT 29.3 % (37.0-47.0)
== END | disposition home or self-care (01) ==
LOC: LAB 00:59
PROVIDERS: ATTEND Internal Medicine
DX: N18.32 Chronic kidney disease, stage 3b (principal); I50.21 Acute systolic (congestive) heart failure; D50.0 Iron deficiency anemia secondary to blood loss (chronic)

== ENCOUNTER → 2023-03-16 | Outpatient (CLI) | payer MEDICARE ==
[~2023-03-16] MED LIST changes: +HYDROXYCHLOROQ200 M1 PO
[2023-03-16 08:18] LABS: HEMATOCRIT 27.5 % (37.0-47.0)
== END | disposition home or self-care (01) ==
LOC: LAB 07:36
PROVIDERS: ATTEND Internal Medicine
DX: N18.32 Chronic kidney disease, stage 3b (principal); I50.21 Acute systolic (congestive) heart failure; D50.0 Iron deficiency anemia secondary to blood loss (chronic)

== ENCOUNTER → 2023-03-30 | Outpatient (CLI) | payer MEDICARE ==
[2023-03-30 08:34] LABS: HEMATOCRIT 26.3 % (37.0-47.0); MEAN CELL VOLUME 101.2 fl (81.0-99.0); MEAN CORPUSCULAR HGB 32.3 pg (27.0-31.0); MEAN CORPUSCULAR HGB CONC 31.9 g/dl (33.0-37.0); MEAN PLATELET VOLUME 9.2 fl (9.6-12.3); RED BLOOD COUNT 2.6 10*6/uL (4.10-5.10); RED CELL DISTRI WIDTH 14.4 % (0-14.5); WHITE BLOOD COUNT 6.1 10*3/uL (4.8-10.8)
[2023-03-30 09:04] LABS: POTASSIUM 3.6 mmol/L (3.4-5.1); TOTAL PROTEIN 6.5 gm/dL (6.0-8.0)
== END | disposition home or self-care (01) ==
LOC: LAB 08:07
PROVIDERS: Physician Assistant; ATTEND Internal Medicine
DX: I13.0 Hypertensive heart and chronic kidney disease with heart failure and stage 1 through stage 4 chronic kidney disease, or unspecified chronic kidney disease (principal); E11.22 Type 2 diabetes mellitus with diabetic chronic kidney disease; N18.32 Chronic kidney disease, stage 3b; D50.0 Iron deficiency anemia secondary to blood loss (chronic)

== ENCOUNTER → 2023-04-13 | Outpatient (CLI) | payer MEDICARE ==
[~2023-04-13] MED LIST changes: +CIPRO500 MG PO
[2023-04-13 08:43] LABS: HEMATOCRIT 26.8 % (37.0-47.0)
== END | disposition home or self-care (01) ==
LOC: LAB 08:09
PROVIDERS: ATTEND Internal Medicine
DX: I50.21 Acute systolic (congestive) heart failure (principal); N18.32 Chronic kidney disease, stage 3b; D50.0 Iron deficiency anemia secondary to blood loss (chronic)

== ENCOUNTER → 2023-05-05 | Outpatient (CLI) | payer MEDICARE | END | disposition home or self-care (01) | LOC: TELEHEALTH 00:32 | PROVIDERS: ATTEND Internal Medicine Hematology & Oncology | DX: I12.9 Hypertensive chronic kidney disease with stage 1 through stage 4 chronic kidney disease, or unspecified chronic kidney disease (principal); E11.22 Type 2 diabetes mellitus with diabetic chronic kidney disease; N18.9 Chronic kidney disease, unspecified; D63.1 Anemia in chronic kidney disease; Z88.8 Allergy status to other drugs, medicaments and biological substances; Z79.899 Other long term (current) drug therapy ==

== ENCOUNTER → 2023-05-11 | Outpatient (CLI) | payer MEDICARE ==
[2023-05-11 11:45] LABS: BASO % 0.4 % (0.0-1.0); EOS # 0.1 10*3/uL (0.0-0.4); EOS % 1.3 % (1.0-4.0); HEMATOCRIT 26.2 % (37.0-47.0); LYMPH % 10.5 % (27.0-41.0); MEAN CELL VOLUME 100.4 fl (81.0-99.0); MEAN CORPUSCULAR HGB 32.6 pg (27.0-31.0); MEAN CORPUSCULAR HGB CONC 32.4 g/dl (33.0-37.0); MEAN PLATELET VOLUME 9.8 fl (9.6-12.3); MONO # 0.7 10*3/uL (0.1-1.0); MONO % 6.6 % (3.0-9.0); NEUT # 7.8 10*3/uL (2.3-7.9); NEUT % 78.2 % (47.0-73.0); PLATELET COUNT AUTOMATED 306 10*3/uL (130-400); RED BLOOD COUNT 2.61 10*6/uL (4.10-5.10); RED CELL DISTRI WIDTH 14.8 % (0-14.5); WHITE BLOOD COUNT 9.9 10*3/uL (4.8-10.8)
[2023-05-11 11:46] LABS: BILIRUBIN Negative (Negative); BLOOD Negative (Negative); CLARITY Clear (Clear); COLOR Yellow (Yellow); GLUCOSE Negative (Negative); KETONE Negative (Negative); LEUKO ESTERASE 1+ (Negative); NITRITE Negative (Negative); PH 5.5 (4.5-8.0); UROBILINOGEN 0.2 E.U./dl (0.0-1.0)
[2023-05-11 11:56] LABS: URINE CREATININE RANDOM 24.97 mg/dL
[2023-05-11 12:05] LABS: BACTERIA 2+; WBC 41-50 wbc/hpf (0-5); YEAST TRACE
[2023-05-11 12:12] LABS: POTASSIUM 4.2 mmol/L (3.4-5.1)
[2023-05-11 12:16] LABS: VITAMIN D, 25-HYDROXY 38.8 ng/mL (30-100)
== END | disposition home or self-care (01) ==
LOC: LAB 11:09
PROVIDERS: ATTEND Internal Medicine Nephrology
DX: N18.4 Chronic kidney disease, stage 4 (severe) (principal); N25.81 Secondary hyperparathyroidism of renal origin; D63.1 Anemia in chronic kidney disease

== ENCOUNTER → 2023-05-26 | Outpatient (CLI) | payer MEDICARE ==
[2023-05-26 09:30] VITALS: BP 149/62
== END | disposition home or self-care (01) ==
LOC: INJECTION 00:33
PROVIDERS: ATTEND Internal Medicine
DX: N18.30 Chronic kidney disease, stage 3 unspecified (principal); D63.1 Anemia in chronic kidney disease

== ENCOUNTER → 2023-06-09 | Outpatient (CLI) | payer MEDICARE ==
[2023-06-09 11:20] VITALS: BP 179/104
== END | disposition home or self-care (01) ==
LOC: INJECTION 00:16 → TELEHEALTH 09:00
PROVIDERS: ATTEND Internal Medicine Hematology & Oncology
DX: I13.2 Hypertensive heart and chronic kidney disease with heart failure and with stage 5 chronic kidney disease, or end stage renal disease (principal); I50.9 Heart failure, unspecified; E11.22 Type 2 diabetes mellitus with diabetic chronic kidney disease; N18.6 End stage renal disease; D63.1 Anemia in chronic kidney disease; K21.9 Gastro-esophageal reflux disease without esophagitis; J44.9 Chronic obstructive pulmonary disease, unspecified; M19.90 Unspecified osteoarthritis, unspecified site; E78.00 Pure hypercholesterolemia, unspecified; Z99.2 Dependence on renal dialysis; Z90.710 Acquired absence of both cervix and uterus; Z98.890 Other specified postprocedural states

== ENCOUNTER 2023-06-26 14:16 | Emergency (ER) | payer MEDICARE ==
[~2023-06-26] VITALS: Ht 160 cm; Wt 84.4 kg
[2023-06-26 15:34] LABS: BASO % 0.6 % (0.0-1.0); EOS # 0.1 10*3/uL (0.0-0.4); EOS % 1.6 % (1.0-4.0); HEMATOCRIT 31.9 % (37.0-47.0); LYMPH # 0.9 10*3/uL (1.3-4.4); LYMPH % 12.3 % (27.0-41.0); MEAN CELL VOLUME 99.7 fl (81.0-99.0); MEAN CORPUSCULAR HGB 31.9 pg (27.0-31.0); MEAN PLATELET VOLUME 9.8 fl (9.6-12.3); MONO # 0.5 10*3/uL (0.1-1.0); MONO % 7.3 % (3.0-9.0); NEUT # 5.4 10*3/uL (2.3-7.9); NEUT % 76.9 % (47.0-73.0); PLATELET COUNT AUTOMATED 234 10*3/uL (130-400); RED CELL DISTRI WIDTH 14.6 % (0-14.5)
[2023-06-26 15:55] LABS: POTASSIUM 4.9 mmol/L (3.4-5.1); TOTAL PROTEIN 5.9 gm/dL (6.0-8.0)
[2023-06-26] MEDS ORDERED: NORVASC10 MG PO (18:03)
== END 2023-06-26 18:19 | disposition home or self-care (01) ==
LOC: ED 14:16
PROVIDERS: Emergency Medicine
DX: I16.0 Hypertensive urgency (principal); E11.22 Type 2 diabetes mellitus with diabetic chronic kidney disease; I13.0 Hypertensive heart and chronic kidney disease with heart failure and stage 1 through stage 4 chronic kidney disease, or unspecified chronic kidney disease; N18.9 Chronic kidney disease, unspecified; E78.5 Hyperlipidemia, unspecified; K21.9 Gastro-esophageal reflux disease without esophagitis; M19.90 Unspecified osteoarthritis, unspecified site; E78.00 Pure hypercholesterolemia, unspecified; J44.9 Chronic obstructive pulmonary disease, unspecified; I50.9 Heart failure, unspecified; Z88.8 Allergy status to other drugs, medicaments and biological substances; Z90.710 Acquired absence of both cervix and uterus; Z90.49 Acquired absence of other specified parts of digestive tract; Z98.890 Other specified postprocedural states

== ENCOUNTER 2023-07-10 11:02 | Emergency (ER) | payer MEDICARE ==
[~2023-07-10] VITALS: Ht 160 cm; Wt 88.9 kg
[~2023-07-10 11:02] MED LIST changes: +NORVASC10 MG PO
[2023-07-10 12:04] LABS: BASO % 0.4 % (0.0-1.0); EOS # 0.1 10*3/uL (0.0-0.4); EOS % 1.7 % (1.0-4.0); HEMATOCRIT 28.6 % (37.0-47.0); LYMPH # 0.8 10*3/uL (1.3-4.4); LYMPH % 9.6 % (27.0-41.0); MEAN CELL VOLUME 100.4 fl (81.0-99.0); MEAN CORPUSCULAR HGB 30.9 pg (27.0-31.0); MEAN CORPUSCULAR HGB CONC 30.8 g/dl (33.0-37.0); MEAN PLATELET VOLUME 8.9 fl (9.6-12.3); MONO # 0.5 10*3/uL (0.1-1.0); MONO % 6.4 % (3.0-9.0); NEUT # 6.7 10*3/uL (2.3-7.9); NEUT % 80.1 % (47.0-73.0); PLATELET COUNT AUTOMATED 291 10*3/uL (130-400); RED BLOOD COUNT 2.85 10*6/uL (4.10-5.10); RED CELL DISTRI WIDTH 14.1 % (0-14.5); WHITE BLOOD COUNT 8.3 10*3/uL (4.8-10.8)
[2023-07-10 12:14] LABS: ACT PARTIAL THROMBO TIME 27.4 SECONDS (20.0-32.1)
[2023-07-10 12:23] LABS: POTASSIUM 4.9 mmol/L (3.4-5.1); TOTAL PROTEIN 5.8 gm/dL (6.0-8.0)
== END 2023-07-10 14:37 | disposition home or self-care (01) ==
LOC: ED 11:02
PROVIDERS: Nurse Practitioner Family
DX: S49.91XA Unspecified injury of right shoulder and upper arm, initial encounter (principal); I13.0 Hypertensive heart and chronic kidney disease with heart failure and stage 1 through stage 4 chronic kidney disease, or unspecified chronic kidney disease; I50.9 Heart failure, unspecified; D64.9 Anemia, unspecified; Z88.8 Allergy status to other drugs, medicaments and biological substances; F41.9 Anxiety disorder, unspecified; M19.90 Unspecified osteoarthritis, unspecified site; K21.9 Gastro-esophageal reflux disease without esophagitis; E11.65 Type 2 diabetes mellitus with hyperglycemia; E11.22 Type 2 diabetes mellitus with diabetic chronic kidney disease; N18.9 Chronic kidney disease, unspecified; E78.00 Pure hypercholesterolemia, unspecified; J44.9 Chronic obstructive pulmonary disease, unspecified; Z98.890 Other specified postprocedural states; Z90.49 Acquired absence of other specified parts of digestive tract; Z90.710 Acquired absence of both cervix and uterus; W01.0XXA Fall on same level from slipping, tripping and stumbling without subsequent striking against object, initial encounter; Y93.89 Activity, other specified; Y92.009 Unspecified place in unspecified non-institutional (private) residence as the place of occurrence of the external cause; Y99.8 Other external cause status

== ENCOUNTER 2023-08-11 06:12 | Inpatient (IN) | payer MEDICARE ==
[2023-08-11] VITALS (42 sets, daily range): BP systolic 53–179; BP diastolic 21–107
[~2023-08-11] VITALS: Ht 160 cm; Wt 88.5 kg
[~2023-08-11 06:12] MED LIST changes: -KLOR-CON M1010 ME1 PO; +KLOR-CON M2020 ME1 PO
[2023-08-11 06:53] LABS: HEMATOCRIT 34.9 % (37.0-47.0); MEAN CORPUSCULAR HGB 29.8 pg (27.0-31.0); MEAN CORPUSCULAR HGB CONC 29.8 g/dl (33.0-37.0); MEAN PLATELET VOLUME 9.8 fl (9.6-12.3); NUCLEATED RED BLOOD CELL 0.1 10*3/uL (0.0-0.0); NUCLEATED RED BLOOD CELL 0.5 % (0.0-0.0); PLATELET COUNT AUTOMATED 396 10*3/uL (130-400); RED BLOOD COUNT 3.49 10*6/uL (4.10-5.10); RED CELL DISTRI WIDTH 15.8 % (0-14.5); WHITE BLOOD COUNT 12.4 10*3/uL (4.8-10.8)
[2023-08-11 06:54] LABS: MANUAL DIFF REFLEX YES
[2023-08-11 06:58] LABS: ABG BASE EXCESS -12.1 mmol/L (-2.0-2.0); ARTERIAL BLOOD GAS PH 7.146 (7.35-7.45)
[2023-08-11 07:04] LABS: ACT PARTIAL THROMBO TIME 27.2 SECONDS (20.0-32.1)
[2023-08-11 07:05] LABS: POTASSIUM 4.7 mmol/L (3.4-5.1); TOTAL PROTEIN 6.7 gm/dL (6.0-8.0)
[2023-08-11 07:28] LABS: BASOPHILS 1 % (0-1); PLATELET SUFFICIENCY NORMAL (NORMAL); POLYCHROMASIA SLIGHT; TOTAL CELLS COUNTED 100 #CELLS
[2023-08-11 07:29] LABS: BURR CELLS FEW; OVALOCYTES FEW
[2023-08-11 07:55] LABS: BILIRUBIN Negative (Negative); BLOOD Trace-Lysed (Negative); CLARITY Cloudy (Clear); COLOR Yellow (Yellow); GLUCOSE 2+ (Negative); KETONE Trace (Negative); LEUKO ESTERASE 2+ (Negative); NITRITE Negative (Negative); UROBILINOGEN 0.2 E.U./dl (0.0-1.0)
[2023-08-11 08:04] LABS: BACTERIA 4+; WBC TNTC wbc/hpf (0-5)
[2023-08-11 08:12] LABS: URINE AMPHETAMINES Negative (1000ng/ml); URINE BARBITURATES Negative (200ng/ml); URINE BENZODIAZEPINES Negative (200ng/ml); URINE CANNABINOIDS (THC) Negative (50ng/ml); URINE COCAINE Negative (300ng/ml); URINE METHADONE Negative (300ng/ml); URINE OPIATES Positive (300ng/ml); URINE PHENCYCLIDINE Negative (25ng/ml)
[2023-08-11 12:09] LABS: ARTERIAL BLOOD GAS PH 7.258 (7.35-7.45)
[2023-08-11 12:11] LABS: ABG BASE EXCESS -8.8 mmol/L (-2.0-2.0)
[2023-08-11] MEDS ORDERED: COREG12.5 M1 PO (13:39)
[2023-08-11] MEDS ORDERED: ALLERGY RELIE15.8 ML NAS (13:50)
[2023-08-11] MEDS ORDERED: NORVASC2.5 MG PO (13:52)
[2023-08-11 18:12] LABS: ARTERIAL BLOOD GAS PH 7.348 (7.35-7.45)
[2023-08-12] VITALS (41 sets, daily range): BP systolic 116–150; BP diastolic 41–78
[2023-08-12 06:03] LABS: FREE T4 1.03 ng/dl (0.89-1.76); POTASSIUM 4.1 mmol/L (3.4-5.1)
[2023-08-12 06:19] LABS: BASO # 0.1 10*3/uL (0.0-0.1); BASO % 0.3 % (0.0-1.0); EOS # 0.1 10*3/uL (0.0-0.4); EOS % 0.7 % (1.0-4.0); HEMATOCRIT 31.1 % (37.0-47.0); LYMPH # 0.7 10*3/uL (1.3-4.4); LYMPH % 4.7 % (27.0-41.0); MEAN CORPUSCULAR HGB 30.3 pg (27.0-31.0); MEAN CORPUSCULAR HGB CONC 31.8 g/dl (33.0-37.0); MEAN PLATELET VOLUME 9.9 fl (9.6-12.3); MONO # 1.2 10*3/uL (0.1-1.0); NEUT # 12.6 10*3/uL (2.3-7.9); NEUT % 85.4 % (47.0-73.0); NUCLEATED RED BLOOD CELL 0.1 % (0.0-0.0); PLATELET COUNT AUTOMATED 319 10*3/uL (130-400); RED BLOOD COUNT 3.27 10*6/uL (4.10-5.10); RED CELL DISTRI WIDTH 15.9 % (0-14.5); WHITE BLOOD COUNT 14.8 10*3/uL (4.8-10.8)
[2023-08-12 06:20] LABS: MEAN CELL VOLUME 95.1 fl (81.0-99.0)
== END 2023-08-12 11:20 | disposition short-term general hospital (02) | DRG 871 ==
LOC: ED 06:12 → EDHOLD 08:22 → ICCU 08:22
PROVIDERS: Family Medicine; Internal Medicine; ADMIT Internal Medicine; ATTEND Internal Medicine
PROC: 5A1935Z Respiratory Ventilation, Less than 24 Consecutive Hours (ICD-10-PCS; principal; 2023-08-11)
PROC: 0BH17EZ Insertion of Endotracheal Airway into Trachea, Via Natural or Artificial Opening (ICD-10-PCS; 2023-08-11)
PROC: 02HV33Z Insertion of Infusion Device into Superior Vena Cava, Percutaneous Approach (ICD-10-PCS; 2023-08-11)
PROC: B548ZZA Ultrasonography of Superior Vena Cava, Guidance (ICD-10-PCS; 2023-08-11)
DX: A41.9 Sepsis, unspecified organism (principal); I21.4 Non-ST elevation (NSTEMI) myocardial infarction; J18.9 Pneumonia, unspecified organism; J96.21 Acute and chronic respiratory failure with hypoxia; J96.22 Acute and chronic respiratory failure with hypercapnia; N17.0 Acute kidney failure with tubular necrosis; I50.23 Acute on chronic systolic (congestive) heart failure; R57.0 Cardiogenic shock; R65.21 Severe sepsis with septic shock; N39.0 Urinary tract infection, site not specified; J90 Pleural effusion, not elsewhere classified; J44.0 Chronic obstructive pulmonary disease with (acute) lower respiratory infection; E87.20 Acidosis, unspecified; J96.11 Chronic respiratory failure with hypoxia; E87.1 Hypo-osmolality and hyponatremia; N18.4 Chronic kidney disease, stage 4 (severe); I13.0 Hypertensive heart and chronic kidney disease with heart failure and stage 1 through stage 4 chronic kidney disease, or unspecified chronic kidney disease; I95.9 Hypotension, unspecified; I48.0 Paroxysmal atrial fibrillation; E11.65 Type 2 diabetes mellitus with hyperglycemia; I35.0 Nonrheumatic aortic (valve) stenosis; D53.9 Nutritional anemia, unspecified; I48.91 Unspecified atrial fibrillation; E11.22 Type 2 diabetes mellitus with diabetic chronic kidney disease; E78.5 Hyperlipidemia, unspecified; D50.0 Iron deficiency anemia secondary to blood loss (chronic); Z79.4 Long term (current) use of insulin; Z88.8 Allergy status to other drugs, medicaments and biological substances; Z90.710 Acquired absence of both cervix and uterus; Z90.49 Acquired absence of other specified parts of digestive tract; Z79.1 Long term (current) use of non-steroidal anti-inflammatories (NSAID); Z79.899 Other long term (current) drug therapy

== ENCOUNTER 2023-09-08 12:14 | Emergency (ER) | payer MEDICARE ==
[~2023-09-08 12:14] MED LIST changes: +ALLERGY RELIE15.8 ML NAS; +NORVASC2.5 MG PO
[2023-09-08 12:58] LABS: MEAN CELL VOLUME 99.5 fl (81.0-99.0); MEAN CORPUSCULAR HGB 29.7 pg (27.0-31.0); MEAN CORPUSCULAR HGB CONC 29.9 g/dl (33.0-37.0); MEAN PLATELET VOLUME 10.2 fl (9.6-12.3); PLATELET COUNT AUTOMATED 185 10*3/uL (130-400); RED BLOOD COUNT 2.02 10*6/uL (4.10-5.10); RED CELL DISTRI WIDTH 16.8 % (0-14.5); WHITE BLOOD COUNT 11.8 10*3/uL (4.8-10.8)
[2023-09-08 13:04] LABS: HEMATOCRIT 20.1 % (37.0-47.0); MANUAL DIFF REFLEX YES
[2023-09-08 13:11] LABS: ACT PARTIAL THROMBO TIME 28.7 SECONDS (20.0-32.1)
[2023-09-08 13:18] LABS: POTASSIUM 5.5 mmol/L (3.4-5.1); TOTAL PROTEIN 5.5 gm/dL (6.0-8.0)
[2023-09-08 13:22] LABS: PLATELET SUFFICIENCY NORMAL (NORMAL); POLYCHROMASIA SLIGHT; TOTAL CELLS COUNTED 100 #CELLS
[2023-09-08] MEDS ORDERED: fentaNYL CITRATE/PF 50 MCG/ML SYRINGE IV ONE (14:20)
[2023-09-08] MEDS ORDERED: Ondansetron Hydrochloride 4 MG/2 ML VIAL IV ONE (14:20)
[2023-09-08] MEDS ORDERED: SODIUM CHLORIDE 0.9% 500 ML IV ONE (14:49)
[2023-09-08 14:51] VITALS: BP 115/31
[2023-09-08 15:10] VITALS: BP 87/38
[2023-09-08 15:23] VITALS: BP 109/65
[2023-09-08 15:39] VITALS: BP 108/27
[2023-09-08 15:59] VITALS: BP 103/64
[2023-09-08 16:46] VITALS: BP 126/30
== END 2023-09-08 17:56 | disposition short-term general hospital (02) ==
LOC: ED 12:14
PROVIDERS: Emergency Medicine
DX: I44.2 Atrioventricular block, complete (principal); D64.9 Anemia, unspecified; I50.9 Heart failure, unspecified; I13.0 Hypertensive heart and chronic kidney disease with heart failure and stage 1 through stage 4 chronic kidney disease, or unspecified chronic kidney disease; N18.9 Chronic kidney disease, unspecified; N17.9 Acute kidney failure, unspecified; J44.9 Chronic obstructive pulmonary disease, unspecified; E78.5 Hyperlipidemia, unspecified; R42 Dizziness and giddiness; I48.91 Unspecified atrial fibrillation; E11.22 Type 2 diabetes mellitus with diabetic chronic kidney disease; K21.9 Gastro-esophageal reflux disease without esophagitis; M19.90 Unspecified osteoarthritis, unspecified site; Z88.8 Allergy status to other drugs, medicaments and biological substances; Z98.890 Other specified postprocedural states; Z90.49 Acquired absence of other specified parts of digestive tract; Z90.710 Acquired absence of both cervix and uterus

== ENCOUNTER 2023-09-19 16:33 | Emergency (ER) | payer MEDICARE ==
[~2023-09-19] VITALS: Ht 160 cm; Wt 88.2 kg
[2023-09-19 17:31] LABS: MEAN CORPUSCULAR HGB 29.7 pg (27.0-31.0); MEAN CORPUSCULAR HGB CONC 31.3 g/dl (33.0-37.0); MEAN PLATELET VOLUME 10.2 fl (9.6-12.3); PLATELET COUNT AUTOMATED 295 10*3/uL (130-400); RED BLOOD COUNT 2.19 10*6/uL (4.10-5.10); RED CELL DISTRI WIDTH 14.1 % (0-14.5); WHITE BLOOD COUNT 6.6 10*3/uL (4.8-10.8)
[2023-09-19 17:39] LABS: HEMATOCRIT 20.8 % (37.0-47.0); MANUAL DIFF REFLEX YES
[2023-09-19 17:52] LABS: TOTAL CELLS COUNTED 100 #CELLS
[2023-09-19 17:53] LABS: OVALOCYTES FEW; PLATELET SUFFICIENCY NORMAL (NORMAL)
[2023-09-19] MEDS ORDERED: SODIUM CHLORIDE 0.9% 500 ML IV ONE (19:29)
[2023-09-19 19:47] VITALS: BP 137/48
[2023-09-19 20:03] VITALS: BP 136/51
[2023-09-19 20:18] VITALS: BP 143/50
[2023-09-19 20:37] VITALS: BP 143/50
[2023-09-19 20:52] VITALS: BP 141/57
[2023-09-19 21:17] VITALS: BP 156/54
[2023-09-19 22:02] LABS: HEMATOCRIT 23.2 % (37.0-47.0)
== END 2023-09-19 23:51 | disposition home or self-care (01) ==
LOC: ED 16:33
PROVIDERS: Internal Medicine; Student in an Organized Health Care Education/Training Program
DX: D64.9 Anemia, unspecified (principal); Z53.29 Procedure and treatment not carried out because of patient's decision for other reasons; Z88.8 Allergy status to other drugs, medicaments and biological substances; Z90.49 Acquired absence of other specified parts of digestive tract; Z90.710 Acquired absence of both cervix and uterus; Z98.890 Other specified postprocedural states

== ENCOUNTER → 2023-10-05 | Outpatient (CLI) | payer MEDICARE ==
[2023-10-05 13:19] LABS: BASO % 0.4 % (0.0-1.0); EOS # 0.2 10*3/uL (0.0-0.4); EOS % 1.9 % (1.0-4.0); HEMATOCRIT 29.7 % (37.0-47.0); LYMPH # 1.4 10*3/uL (1.3-4.4); LYMPH % 17.3 % (27.0-41.0); MEAN CELL VOLUME 94.6 fl (81.0-99.0); MEAN CORPUSCULAR HGB CONC 30.6 g/dl (33.0-37.0); MEAN PLATELET VOLUME 9.3 fl (9.6-12.3); MONO # 0.7 10*3/uL (0.1-1.0); NEUT # 5.8 10*3/uL (2.3-7.9); NEUT % 69.9 % (47.0-73.0); PLATELET COUNT AUTOMATED 240 10*3/uL (130-400); RED BLOOD COUNT 3.14 10*6/uL (4.10-5.10); RED CELL DISTRI WIDTH 16.6 % (0-14.5); WHITE BLOOD COUNT 8.3 10*3/uL (4.8-10.8)
[2023-10-05 14:37] LABS: POTASSIUM 2.6 mmol/L (3.4-5.1)
[2023-10-05 14:40] LABS: VITAMIN D, 25-HYDROXY 39.6 ng/mL (30-100)
== END | disposition home or self-care (01) ==
LOC: LAB 12:59
PROVIDERS: ATTEND Internal Medicine Nephrology
DX: N18.4 Chronic kidney disease, stage 4 (severe) (principal); N25.81 Secondary hyperparathyroidism of renal origin; D63.1 Anemia in chronic kidney disease

== ENCOUNTER → 2023-10-06 | Outpatient (CLI) | payer MEDICARE ==
[2023-10-06 11:10] LABS: BILIRUBIN Negative (Negative); BLOOD Negative (Negative); CLARITY Clear (Clear); COLOR Yellow (Yellow); GLUCOSE Trace (Negative); KETONE Negative (Negative); LEUKO ESTERASE Negative (Negative); NITRITE Negative (Negative); PH 5.5 (4.5-8.0); UROBILINOGEN 0.2 E.U./dl (0.0-1.0)
[2023-10-06 11:23] LABS: URINE CREATININE RANDOM 48.42 mg/dL
[2023-10-06 11:35] LABS: RBC 0-2 rbc/hpf (0-2)
== END | disposition home or self-care (01) ==
LOC: LAB 09:21
PROVIDERS: ATTEND Internal Medicine Nephrology
DX: N18.4 Chronic kidney disease, stage 4 (severe) (principal); N25.81 Secondary hyperparathyroidism of renal origin; D63.1 Anemia in chronic kidney disease

== ENCOUNTER → 2023-11-02 | Outpatient (CLI) | payer MEDICARE | END | disposition home or self-care (01) | LOC: RAD 13:47 | PROVIDERS: ATTEND Internal Medicine | DX: M19.012 Primary osteoarthritis, left shoulder (principal); M25.812 Other specified joint disorders, left shoulder ==

== ENCOUNTER 2023-11-27 11:54 | Emergency (ER) | payer MEDICARE ==
[~2023-11-27] VITALS: Ht 160 cm; Wt 81.6 kg
[2023-11-27] MEDS ORDERED: ACETAMINOPHEN 325 MG TAB PO ONE (13:55)
== END 2023-11-27 15:29 | disposition home or self-care (01) ==
LOC: ED 11:54
DX: M25.552 Pain in left hip (principal); M25.531 Pain in right wrist; W19.XXXA Unspecified fall, initial encounter; S91.011A Laceration without foreign body, right ankle, initial encounter; K21.9 Gastro-esophageal reflux disease without esophagitis; M19.90 Unspecified osteoarthritis, unspecified site; E78.5 Hyperlipidemia, unspecified; I50.9 Heart failure, unspecified; J44.9 Chronic obstructive pulmonary disease, unspecified; I48.91 Unspecified atrial fibrillation; E11.22 Type 2 diabetes mellitus with diabetic chronic kidney disease; I13.0 Hypertensive heart and chronic kidney disease with heart failure and stage 1 through stage 4 chronic kidney disease, or unspecified chronic kidney disease; N18.9 Chronic kidney disease, unspecified; Z88.8 Allergy status to other drugs, medicaments and biological substances; Z90.49 Acquired absence of other specified parts of digestive tract; Z90.710 Acquired absence of both cervix and uterus; Z98.890 Other specified postprocedural states; W54.0XXA Bitten by dog, initial encounter; Y93.89 Activity, other specified; Y92.89 Other specified places as the place of occurrence of the external cause; Y99.8 Other external cause status

== ENCOUNTER → 2023-12-26 | Outpatient (CLI) | payer MEDICARE ==
[2023-12-26 14:05] LABS: BASO % 0.3 % (0.0-1.0); EOS # 0.2 10*3/uL (0.0-0.4); EOS % 2.2 % (1.0-4.0); HEMATOCRIT 29.2 % (37.0-47.0); LYMPH # 1.5 10*3/uL (1.3-4.4); LYMPH % 16.8 % (27.0-41.0); MEAN CELL VOLUME 90.1 fl (81.0-99.0); MEAN CORPUSCULAR HGB 27.8 pg (27.0-31.0); MEAN CORPUSCULAR HGB CONC 30.8 g/dl (33.0-37.0); MEAN PLATELET VOLUME 8.9 fl (9.6-12.3); MONO # 0.7 10*3/uL (0.1-1.0); MONO % 7.9 % (3.0-9.0); NEUT # 6.6 10*3/uL (2.3-7.9); NEUT % 71.4 % (47.0-73.0); NUCLEATED RED BLOOD CELL 0.2 % (0.0-0.0); PLATELET COUNT AUTOMATED 292 10*3/uL (130-400); RED BLOOD COUNT 3.24 10*6/uL (4.10-5.10); RED CELL DISTRI WIDTH 16.8 % (0-14.5); WHITE BLOOD COUNT 9.2 10*3/uL (4.8-10.8)
[2023-12-26 14:15] LABS: URINE CREATININE RANDOM 56.81 mg/dL
[2023-12-26 14:38] LABS: POTASSIUM 3.3 mmol/L (3.4-5.1)
[2023-12-26 14:42] LABS: VITAMIN D, 25-HYDROXY 40.3 ng/mL (30-100)
[2023-12-26 15:20] LABS: BILIRUBIN Negative (Negative); BLOOD Negative (Negative); CLARITY Clear (Clear); COLOR Yellow (Yellow); GLUCOSE Negative (Negative); KETONE Trace (Negative); LEUKO ESTERASE Trace (Negative); NITRITE Negative (Negative); UROBILINOGEN 0.2 E.U./dl (0.0-1.0)
[2023-12-26 15:32] LABS: BACTERIA TRACE; WBC 16-20 wbc/hpf (0-5)
== END ==
LOC: LAB 13:44
PROVIDERS: ATTEND Internal Medicine Nephrology
DX: N18.4 Chronic kidney disease, stage 4 (severe) (principal); N25.81 Secondary hyperparathyroidism of renal origin; D63.1 Anemia in chronic kidney disease

== ENCOUNTER → 2024-04-26 | Outpatient (CLI) | payer MEDICARE ==
[2024-04-26 13:36] LABS: BASO % 0.4 % (0.0-1.0); EOS # 0.2 10*3/uL (0.0-0.4); EOS % 2.1 % (1.0-4.0); HEMATOCRIT 30.8 % (37.0-47.0); LYMPH # 0.9 10*3/uL (1.3-4.4); LYMPH % 9.4 % (27.0-41.0); MEAN CELL VOLUME 93.9 fl (81.0-99.0); MEAN CORPUSCULAR HGB 29.9 pg (27.0-31.0); MEAN CORPUSCULAR HGB CONC 31.8 g/dl (33.0-37.0); MEAN PLATELET VOLUME 10.2 fl (9.6-12.3); MONO # 0.6 10*3/uL (0.1-1.0); MONO % 6.2 % (3.0-9.0); NEUT % 80.4 % (47.0-73.0); PLATELET COUNT AUTOMATED 239 10*3/uL (130-400); RED BLOOD COUNT 3.28 10*6/uL (4.10-5.10)
[2024-04-26 13:37] LABS: BILIRUBIN Negative (Negative); BLOOD Negative (Negative); CLARITY Clear (Clear); COLOR Yellow (Yellow); GLUCOSE Trace (Negative); KETONE Negative (Negative); LEUKO ESTERASE 1+ (Negative); NITRITE Negative (Negative); UROBILINOGEN 0.2 E.U./dl (0.0-1.0)
[2024-04-26 13:56] LABS: BACTERIA 2+; EPITHELIAL CELLS 0-2
[2024-04-26 14:23] LABS: VITAMIN D, 25-HYDROXY 53.8 ng/mL (30-100)
[2024-04-26 15:05] LABS: URINE CREATININE RANDOM 43.82 mg/dL
== END | disposition home or self-care (01) ==
LOC: LAB 12:59
PROVIDERS: ATTEND Internal Medicine Nephrology
DX: E11.22 Type 2 diabetes mellitus with diabetic chronic kidney disease (principal); N25.81 Secondary hyperparathyroidism of renal origin; N18.4 Chronic kidney disease, stage 4 (severe); D63.1 Anemia in chronic kidney disease

== ENCOUNTER 2024-06-02 08:37 | Inpatient (IN) | payer MEDICARE ==
[~2024-06-02] VITALS: Wt 84.4 kg
[2024-06-02 08:39] VITALS: BP 150/53
[2024-06-02] MEDS ORDERED: Ondansetron Hydrochloride 4 MG/2 ML VIAL IV ONE (08:45)
[2024-06-02] MEDS ORDERED: MORPHINE Sulfate 2 MG/ML SYR IV ONE (08:45)
[2024-06-02 09:13] LABS: HEMATOCRIT 23.4 % (37.0-47.0); MEAN CELL VOLUME 91.4 fl (81.0-99.0); MEAN CORPUSCULAR HGB 29.3 pg (27.0-31.0); MEAN CORPUSCULAR HGB CONC 32.1 g/dl (33.0-37.0); MEAN PLATELET VOLUME 9.1 fl (9.6-12.3); PLATELET COUNT AUTOMATED 373 10*3/uL (130-400); RED BLOOD COUNT 2.56 10*6/uL (4.10-5.10); RED CELL DISTRI WIDTH 14.6 % (0-14.5); WHITE BLOOD COUNT 15.6 10*3/uL (4.8-10.8)
[2024-06-02 09:14] LABS: MANUAL DIFF REFLEX YES
[2024-06-02 09:30] LABS: POTASSIUM 4.2 mmol/L (3.4-5.1)
[2024-06-02 09:51] LABS: OVALOCYTES FEW; PLATELET SUFFICIENCY NORMAL (NORMAL); POLYCHROMASIA SLIGHT; TOTAL CELLS COUNTED 100 #CELLS
[2024-06-02 10:14] LABS: BILIRUBIN Negative (Negative); BLOOD Negative (Negative); CLARITY Clear (Clear); COLOR Yellow (Yellow); GLUCOSE 1+ (Negative); KETONE Negative (Negative); LEUKO ESTERASE Trace (Negative); NITRITE Negative (Negative); PH 5.5 (4.5-8.0); SPECIFIC GRAVITY 1.015 (1.001-1.030); UROBILINOGEN 0.2 E.U./dl (0.0-1.0)
[2024-06-02 10:31] LABS: BACTERIA 2+
[2024-06-02] MEDS ORDERED: Ceftriaxone Sodium 1 GM/10 ML SYR IV ONE (10:45)
[2024-06-02] MEDS ORDERED: SODIUM CHLORIDE 0.9% 500 ML IV ONE (10:50)
[2024-06-02] MEDS ORDERED: SODIUM CHLORIDE 0.9% 1,000 ML IV SCH (14:45)
[2024-06-02] MEDS ORDERED: ACETAMINOPHEN 325 MG TAB PO PRN (15:50)
[2024-06-02] MEDS ORDERED: HYDROmorphONE Hydrochloride 0.5 MG/0.5 ML SYRINGE IV PRN (15:50)
[2024-06-02 18:06] VITALS: BP 142/52
[2024-06-02 19:31] VITALS: BP 167/59
[2024-06-03 06:18] LABS: HEMATOCRIT 24.5 % (37.0-47.0); MEAN CORPUSCULAR HGB 27.9 pg (27.0-31.0); MEAN CORPUSCULAR HGB CONC 29.4 g/dl (33.0-37.0); MEAN PLATELET VOLUME 9.6 fl (9.6-12.3); PLATELET COUNT AUTOMATED 448 10*3/uL (130-400); RED BLOOD COUNT 2.58 10*6/uL (4.10-5.10); RED CELL DISTRI WIDTH 14.5 % (0-14.5); WHITE BLOOD COUNT 18.4 10*3/uL (4.8-10.8)
[2024-06-03 06:28] LABS: MANUAL DIFF REFLEX YES
[2024-06-03 06:34] VITALS: BP 152/55
[2024-06-03 07:28] LABS: TOTAL CELLS COUNTED 100 #CELLS
[2024-06-03 07:41] LABS: BASOPHILS 1 % (0-1)
[2024-06-03 07:45] LABS: PLATELET SUFFICIENCY HIGH (NORMAL)
[2024-06-03] MEDS ORDERED: Ceftriaxone Sodium 1 GM in SYRINGE INFUSION 10 ML IV SCH (10:00)
== END 2024-06-03 17:41 | disposition left against medical advice (07) | DRG 690 ==
LOC: ED 08:37 → EDHOLD 11:21
PROVIDERS: Emergency Medicine; Internal Medicine; ADMIT Internal Medicine; ATTEND Internal Medicine
DX: N39.0 Urinary tract infection, site not specified (principal); I13.0 Hypertensive heart and chronic kidney disease with heart failure and stage 1 through stage 4 chronic kidney disease, or unspecified chronic kidney disease; D64.9 Anemia, unspecified; N18.9 Chronic kidney disease, unspecified; Z96.642 Presence of left artificial hip joint; I50.9 Heart failure, unspecified; Z53.29 Procedure and treatment not carried out because of patient's decision for other reasons; E11.22 Type 2 diabetes mellitus with diabetic chronic kidney disease; I48.91 Unspecified atrial fibrillation; D72.829 Elevated white blood cell count, unspecified; Z95.0 Presence of cardiac pacemaker; Z88.8 Allergy status to other drugs, medicaments and biological substances; Z79.899 Other long term (current) drug therapy; Z90.710 Acquired absence of both cervix and uterus; Z90.49 Acquired absence of other specified parts of digestive tract

== ENCOUNTER 2024-12-23 07:04 | Emergency (ER) | payer MEDICARE ==
[~2024-12-23] VITALS: Ht 160 cm; Wt 77.1 kg
[~2024-12-23 07:04] MED LIST changes: -GABAPENTIN100 M2 PO; -ISOSORBIDE DINI30 MG PO; -MAGNESIUM400 MG PO; -NOVOLOG FL100 UNIT/2 SC; -SOVUNA200 MG PO; -SPIRIVA RESPIMAT4 GM INH
[2024-12-23] MEDS ORDERED: NITROGLYCERIN 0.4 MG BOT SL ONE (07:25)
[2024-12-23] MEDS ORDERED: ASPIRIN, CHEWABLE 81 MG TAB PO ONE (07:25)
[2024-12-23 07:46] LABS: BASO # 0.1 10*3/uL (0.0-0.1); BASO % 0.7 % (0.0-1.0); EOS # 0.4 10*3/uL (0.0-0.4); MEAN CORPUSCULAR HGB 29.9 pg (27.0-31.0); MEAN CORPUSCULAR HGB CONC 32.1 g/dl (33.0-37.0); MEAN PLATELET VOLUME 9.5 fl (9.6-12.3); MONO # 0.5 10*3/uL (0.1-1.0); MONO % 6.5 % (3.0-9.0); NEUT % 71.8 % (47.0-73.0); PLATELET COUNT AUTOMATED 282 10*3/uL (130-400); RED BLOOD COUNT 3.55 10*6/uL (4.10-5.10); RED CELL DISTRI WIDTH 13.5 % (0-14.5); WHITE BLOOD COUNT 8.4 10*3/uL (4.8-10.8)
[2024-12-23 07:57] LABS: ACT PARTIAL THROMBO TIME 26.2 SECONDS (20.0-32.1)
[2024-12-23] MEDS ORDERED: GABAPENTIN100 M2 PO (08:01)
[2024-12-23] MEDS ORDERED: Rocaltrol0.25 MCG PO (08:02)
[2024-12-23 08:09] LABS: POTASSIUM 3.6 mmol/L (3.4-5.1); TOTAL PROTEIN 6.3 gm/dL (6.0-8.0)
[2024-12-23] MEDS ORDERED: NITROGLYCERIN 1 IN PACKET T ONE (08:45)
[2024-12-23] MEDS ORDERED: ISORDIL10 M1 PO (09:03)
[2024-12-23] MEDS ORDERED: MAGNESIUM400 MG PO (09:06)
[2024-12-23] MEDS ORDERED: NOVOLOG FL100 UNIT/2 SC (09:13)
[2024-12-23] MEDS ORDERED: SPIRIVA RESPIMAT4 GM INH (09:15)
[2024-12-23] MEDS ORDERED: SOVUNA200 MG PO (09:18)
[2024-12-23] MEDS ORDERED: ISOSORBIDE DINI30 MG PO (13:30)
[2024-12-23] MEDS ORDERED: Menthol/Zinc Oxide 4 GM THIN T ONE (13:52)
== END 2024-12-23 13:42 | disposition home or self-care (01) ==
LOC: ED 07:04
PROVIDERS: Emergency Medicine
DX: I25.119 Atherosclerotic heart disease of native coronary artery with unspecified angina pectoris (principal); L89.90 Pressure ulcer of unspecified site, unspecified stage; E11.9 Type 2 diabetes mellitus without complications; E78.5 Hyperlipidemia, unspecified; I11.0 Hypertensive heart disease with heart failure; I50.9 Heart failure, unspecified; Z95.0 Presence of cardiac pacemaker; Z88.8 Allergy status to other drugs, medicaments and biological substances; Z79.4 Long term (current) use of insulin; Z79.899 Other long term (current) drug therapy; Z90.711 Acquired absence of uterus with remaining cervical stump; Z90.49 Acquired absence of other specified parts of digestive tract; Z96.642 Presence of left artificial hip joint; Z98.890 Other specified postprocedural states; Z90.710 Acquired absence of both cervix and uterus

== ENCOUNTER → 2024-12-23 | Outpatient (CLI) | payer MEDICARE ==
[~2024-12-23] MED LIST changes: +ASPIRIN CHEWABL81 MG PO; +GABAPENTIN100 M2 PO; +HYDRALAZINE HYD50 MG PO; +INSULIN GL300 UNIT/1 SQ; +ISOSORBIDE DINI30 MG PO; +MACROBID100 M1 PO; +MAGNESIUM400 MG PO; +NOVOLOG FL100 UNIT/2 SC; +OZEMPIC1 MG/0.71 SQ; +PRAVASTATIN SOD40 MG PO; +SOVUNA200 MG PO; +SPIRIVA RESPIMAT4 GM INH
[2024-12-23 14:53] LABS: BILIRUBIN Negative (Negative); BLOOD Negative (Negative); CLARITY Clear (Clear); COLOR Yellow (Yellow); GLUCOSE Negative (Negative); KETONE Negative (Negative); LEUKO ESTERASE Negative (Negative); NITRITE Negative (Negative); UROBILINOGEN 0.2 E.U./dl (0.0-1.0)
[2024-12-23 14:53] LABS: BASO # 0.1 10*3/uL (0.0-0.1); BASO % 0.5 % (0.0-1.0); EOS # 0.4 10*3/uL (0.0-0.4); EOS % 3.7 % (1.0-4.0); HEMATOCRIT 34.4 % (37.0-47.0); MEAN CELL VOLUME 92.5 fl (81.0-99.0); MEAN CORPUSCULAR HGB 29.8 pg (27.0-31.0); MEAN CORPUSCULAR HGB CONC 32.3 g/dl (33.0-37.0); MEAN PLATELET VOLUME 9.9 fl (9.6-12.3); MONO # 0.5 10*3/uL (0.1-1.0); MONO % 5.5 % (3.0-9.0); NEUT # 7.1 10*3/uL (2.3-7.9); NEUT % 73.2 % (47.0-73.0); PLATELET COUNT AUTOMATED 311 10*3/uL (130-400); RED BLOOD COUNT 3.72 10*6/uL (4.10-5.10); RED CELL DISTRI WIDTH 13.5 % (0-14.5); WHITE BLOOD COUNT 9.7 10*3/uL (4.8-10.8)
[2024-12-23 15:34] LABS: BACTERIA TRACE; EPITHELIAL CELLS 0-2; MUCOUS TRACE; RBC 0-2 rbc/hpf (0-2); WBC 0-2 wbc/hpf (0-5)
[2024-12-23 15:35] LABS: VITAMIN D, 25-HYDROXY 46.6 ng/mL (30-100)
== END | disposition home or self-care (01) ==
LOC: LAB 14:26
PROVIDERS: ATTEND Internal Medicine Nephrology
DX: N18.4 Chronic kidney disease, stage 4 (severe) (principal); N25.81 Secondary hyperparathyroidism of renal origin; D63.1 Anemia in chronic kidney disease

== ENCOUNTER → 2024-12-25 | Outpatient (CLI) | payer MEDICARE ==
[~2024-12-25] MED LIST changes: +GABAPENTIN100 M2 PO; +ISOSORBIDE DINI30 MG PO; +MAGNESIUM400 MG PO; +NOVOLOG FL100 UNIT/2 SC; +SOVUNA200 MG PO; +SPIRIVA RESPIMAT4 GM INH
== END | disposition home or self-care (01) ==
LOC: WOUNDCARE 01:13 → CARD 01:13 → WOUNDCARE 10:30 → CARD 10:30
PROVIDERS: ATTEND Internal Medicine Cardiovascular Disease
DX: Z95.0 Presence of cardiac pacemaker (principal); Z86.79 Personal history of other diseases of the circulatory system; I50.9 Heart failure, unspecified; I48.0 Paroxysmal atrial fibrillation

== ENCOUNTER 2025-04-03 21:55 | Emergency (ER) | payer MEDICARE ==
[~2025-04-03] VITALS: Ht 160 cm; Wt 73.5 kg
[2025-04-04] MEDS ORDERED: ZITHROMAX250 MG PO (01:04)
[2025-04-04] MEDS ORDERED: PREDNISONE20 M1 PO (01:04)
== END 2025-04-04 01:17 | disposition home or self-care (01) ==
LOC: ED 21:55
DX: B34.9 Viral infection, unspecified (principal); K21.9 Gastro-esophageal reflux disease without esophagitis; J44.9 Chronic obstructive pulmonary disease, unspecified; I13.0 Hypertensive heart and chronic kidney disease with heart failure and stage 1 through stage 4 chronic kidney disease, or unspecified chronic kidney disease; E11.22 Type 2 diabetes mellitus with diabetic chronic kidney disease; N18.9 Chronic kidney disease, unspecified; I50.9 Heart failure, unspecified; E78.5 Hyperlipidemia, unspecified; Z20.822 Contact with and (suspected) exposure to COVID-19; Z79.4 Long term (current) use of insulin; Z88.8 Allergy status to other drugs, medicaments and biological substances; Z90.710 Acquired absence of both cervix and uterus; Z98.890 Other specified postprocedural states

== ENCOUNTER 2025-04-24 10:05 | Inpatient (IN) | payer MEDICARE ==
[~2025-04-24] VITALS: Ht 160 cm; Wt 78.6 kg
[2025-04-24] VITALS (14 sets, daily range): BP systolic 137–165; BP diastolic 50–63
[~2025-04-24 10:05] MED LIST changes: +PREDNISONE20 M1 PO; +ZITHROMAX250 MG PO
[2025-04-24] MEDS ORDERED: POTASSIUM CHLO10 ME5 PO (10:14)
[2025-04-24] MEDS ORDERED: ROPINIROLE HYDRO1 MG PO (10:16)
[2025-04-24] MEDS ORDERED: DULOXETINE HCL60 MG PO (10:16)
[2025-04-24] MEDS ORDERED: PANTOPRAZOLE SO40 MG PO (10:17)
[2025-04-24] MEDS ORDERED: MAGNESIUM400 M1 PO (10:18)
[2025-04-24] MEDS ORDERED: AMLODIPINE BESY10 MG PO (10:18)
[2025-04-24 10:44] LABS: BASO # 0.0 10*3/uL (0.0-0.1); BASO % 0.4 % (0.0-1.0); EOS # 0.2 10*3/uL (0.0-0.4); EOS % 1.8 % (1.0-4.0); MEAN CELL VOLUME 102.6 fl (81.0-99.0); MEAN CORPUSCULAR HGB 31.3 pg (27.0-31.0); MEAN PLATELET VOLUME 9.4 fl (9.6-12.3); MONO # 0.6 10*3/uL (0.1-1.0); MONO % 6.9 % (3.0-9.0); NEUT # 6.9 10*3/uL (2.3-7.9); NEUT % 84.4 % (47.0-73.0); NUCLEATED RED BLOOD CELL 0.0 % (0.0-0.0); NUCLEATED RED BLOOD CELL 0.0 10*3/uL (0.0-0.0); PLATELET COUNT AUTOMATED 154 10*3/uL (130-400); RED CELL DISTRI WIDTH 18.2 % (0-14.5)
[2025-04-24 10:54] LABS: ACT PARTIAL THROMBO TIME 26.6 SECONDS (20.0-32.1)
[2025-04-24 11:06] LABS: BUN 46.0 mg/dl (9-23); SGPT/ALT 10.0 U/L (5-49)
[2025-04-24] MEDS ORDERED: SODIUM CHLORIDE 0.9% 500 ML IV ONE (16:40)
[2025-04-24] MEDS ORDERED: HYDROCODONE-AC1 EAC1 PO (22:21)
[2025-04-25] MEDS ORDERED: FOAM BANDAGE 1 EACH BANDAGE T ONE (00:45)
[2025-04-25 06:20] LABS: BASO # 0.0 10*3/uL (0.0-0.1); BASO % 0.4 % (0.0-1.0); EOS # 0.2 10*3/uL (0.0-0.4); EOS % 2.0 % (1.0-4.0); MEAN CELL VOLUME 101.4 fl (81.0-99.0); MEAN CORPUSCULAR HGB 31.3 pg (27.0-31.0); MEAN PLATELET VOLUME 10.4 fl (9.6-12.3); MONO # 0.7 10*3/uL (0.1-1.0); MONO % 7.4 % (3.0-9.0); NEUT # 7.5 10*3/uL (2.3-7.9); NEUT % 82.5 % (47.0-73.0); NUCLEATED RED BLOOD CELL 0.0 % (0.0-0.0); NUCLEATED RED BLOOD CELL 0.0 10*3/uL (0.0-0.0); PLATELET COUNT AUTOMATED 146 10*3/uL (130-400); RED CELL DISTRI WIDTH 17.6 % (0-14.5)
[2025-04-25 06:32] LABS: BUN 46.0 mg/dl (9-23); SGPT/ALT 10.0 U/L (5-49)
[2025-04-25 08:00] VITALS: BP 182/54
[2025-04-25] MEDS ORDERED: Acetaminophen/Hydrocodone 5 MG/325 MG TABLET PO PRN (09:55)
[2025-04-25] MEDS ORDERED: MAGNESIUM OXIDE 400 MG TAB PO SCH (10:00)
[2025-04-25] MEDS ORDERED: BUMETANIDE 1 MG TAB PO SCH (10:00)
[2025-04-25] MEDS ORDERED: hydrALAZINE hydrochloride 50 MG TAB PO SCH ×2 (10:00→14:00)
[2025-04-25] MEDS ORDERED: ISOSORBIDE DINITRATE 10 MG TAB PO SCH ×2 (10:00)
[2025-04-25] MEDS ORDERED: SIMVASTATIN 20 MG TAB PO SCH (10:00)
[2025-04-25] MEDS ORDERED: POTASSIUM CHLORIDE 10 MEQ TAB PO SCH ×2 (10:00)
[2025-04-25 12:00] VITALS: BP 178/56
[2025-04-25 16:00] VITALS: BP 141/66
[2025-04-25] MEDS ORDERED: Polyethylene Glycol 3350 238 GM BOT PO ONE (18:00)
[2025-04-25 20:00] VITALS: BP 170/54
[2025-04-25] MEDS ORDERED: FOAM BANDAGE HEEL T ONE (21:13)
[2025-04-25] MEDS ORDERED: HEEL PROTECTOR DEVICE ONE (21:14)
[2025-04-25] MEDS ORDERED: BISACODYL 5 MG TAB PO SCH (22:00)
[2025-04-26] VITALS: BP 153/66
[2025-04-26 05:14] LABS: BUN 42.0 mg/dl (9-23); SGPT/ALT 9.0 U/L (5-49)
[2025-04-26 05:44] VITALS: BP 176/57
[2025-04-26] MEDS ORDERED: Na Phos, Dibasic/Na Phos, Mo 1 EA BOT R PRN (06:00)
[2025-04-26] MEDS ORDERED: FUROSEMIDE 40 MG/4 ML VIAL IV SCH (06:00)
[2025-04-26 06:02] LABS: BASO # 0.0 10*3/uL (0.0-0.1); BASO % 0.4 % (0.0-1.0); EOS # 0.2 10*3/uL (0.0-0.4); EOS % 3.0 % (1.0-4.0); MEAN CELL VOLUME 102.3 fl (81.0-99.0); MEAN CORPUSCULAR HGB 31.0 pg (27.0-31.0); MEAN PLATELET VOLUME 10.5 fl (9.6-12.3); MONO # 0.8 10*3/uL (0.1-1.0); MONO % 10.1 % (3.0-9.0); NEUT # 5.8 10*3/uL (2.3-7.9); NEUT % 77.9 % (47.0-73.0); NUCLEATED RED BLOOD CELL 0.0 % (0.0-0.0); NUCLEATED RED BLOOD CELL 0.0 10*3/uL (0.0-0.0); PLATELET COUNT AUTOMATED 138 10*3/uL (130-400); RED CELL DISTRI WIDTH 17.4 % (0-14.5)
[2025-04-26 08:00] VITALS: BP 154/45
[2025-04-26] MEDS ORDERED: TOUJEO SOL300 UNIT/1 SC (10:23)
[2025-04-26] MEDS ORDERED: HUMALOG100 UNIT/1 SC (10:25)
[2025-04-26 11:54] VITALS: BP 144/49
[2025-04-26 16:00] VITALS: BP 149/42
[2025-04-26] MEDS ORDERED: SODIUM BICARBONATE 650 MG TAB PO SCH (18:00)
[2025-04-26 20:00] VITALS: BP 154/53
[2025-04-27] VITALS: BP 160/70
[2025-04-27 05:36] VITALS: BP 147/56
[2025-04-27 06:04] LABS: BASO # 0.0 10*3/uL (0.0-0.1); BASO % 0.3 % (0.0-1.0); EOS # 0.2 10*3/uL (0.0-0.4); EOS % 3.1 % (1.0-4.0); MEAN CELL VOLUME 100.4 fl (81.0-99.0); MEAN CORPUSCULAR HGB 31.4 pg (27.0-31.0); MEAN PLATELET VOLUME 10.1 fl (9.6-12.3); MONO # 0.7 10*3/uL (0.1-1.0); MONO % 9.4 % (3.0-9.0); NEUT # 5.8 10*3/uL (2.3-7.9); NEUT % 78.6 % (47.0-73.0); NUCLEATED RED BLOOD CELL 0.0 % (0.0-0.0); NUCLEATED RED BLOOD CELL 0.0 10*3/uL (0.0-0.0); PLATELET COUNT AUTOMATED 139 10*3/uL (130-400); RED CELL DISTRI WIDTH 17.0 % (0-14.5)
[2025-04-27 06:11] LABS: BUN 47 mg/dl (9-23)
[2025-04-27 06:23] LABS: SGPT/ALT < 7 U/L (5-49)
[2025-04-27 08:00] VITALS: BP 149/43
[2025-04-27 12:00] VITALS: BP 153/45
[2025-04-27 16:00] VITALS: BP 145/44
[2025-04-27] MEDS ORDERED: Polyethylene Glycol 3350 238 GM BOT PO SCH (16:00)
[2025-04-27 20:00] VITALS: BP 160/70
[2025-04-27] MEDS ORDERED: BISACODYL 5 MG TAB PO SCH ×2 (20:00→22:00)
[2025-04-28] VITALS (10 sets, daily range): BP systolic 127–167; BP diastolic 49–67
[2025-04-28] MEDS ORDERED: Na Phos, Dibasic/Na Phos, Mo 1 EA BOT R PRN (06:00)
[2025-04-28] MEDS ORDERED: SODIUM CHLORIDE 0.9% 500 ML IV ONE (08:40)
[2025-04-28] MEDS ORDERED: PROPOFOL 200 MG/20 ML VIAL IV ONE (11:24)
[2025-04-28] MEDS ORDERED: Lidocaine Hydrochloride 2% 5 ML SDV IV ONE (11:24)
[2025-04-28] MEDS ORDERED: Phenylephrine Hydrochloride 1 MG/10 ML SYRINGE IV ONE (11:24)
[2025-04-28] MEDS ORDERED: FOAM BANDAGE 1 EACH BANDAGE T ONE (11:53)
[2025-04-29] VITALS: BP 154/48
[2025-04-29 06:13] LABS: BASO # 0.0 10*3/uL (0.0-0.1); BASO % 0.4 % (0.0-1.0); EOS # 0.3 10*3/uL (0.0-0.4); EOS % 4.4 % (1.0-4.0); MEAN CORPUSCULAR HGB 30.2 pg (27.0-31.0); MEAN PLATELET VOLUME 10.5 fl (9.6-12.3); MONO # 0.7 10*3/uL (0.1-1.0); MONO % 10.3 % (3.0-9.0); NEUT # 4.9 10*3/uL (2.3-7.9); NEUT % 72.4 % (47.0-73.0); NUCLEATED RED BLOOD CELL 0.0 % (0.0-0.0); NUCLEATED RED BLOOD CELL 0.0 10*3/uL (0.0-0.0); RED CELL DISTRI WIDTH 15.6 % (0-14.5)
[2025-04-29 06:30] LABS: BUN 44.0 mg/dl (9-23); SGPT/ALT 8.0 U/L (5-49)
[2025-04-29 06:33] LABS: MEAN CELL VOLUME 97.2 fl (81.0-99.0); PLATELET COUNT AUTOMATED 193 10*3/uL (130-400)
[2025-04-29 08:00] VITALS: BP 151/82
[2025-04-29 12:00] VITALS: BP 144/69
[2025-04-29] MEDS ORDERED: LEPTOSPERMUM HONEY 0.5 OZ TUBE T ONE (13:09)
[2025-04-29] MEDS ORDERED: FOAM BANDAGE 1 EACH BANDAGE T ONE (13:10)
[2025-04-29] MEDS ORDERED: FOAM BANDAGE 5X5 T ONE (13:17)
== END 2025-04-29 13:04 | disposition home or self-care (01) | DRG 377 ==
LOC: ED 10:05 → EDHOLD 14:27 → 4E 14:50 → 5E 19:39 → 4E 04-25 07:31
PROVIDERS: Student in an Organized Health Care Education/Training Program; ADMIT Internal Medicine; ATTEND Internal Medicine
PROC: 30233N1 Transfusion of Nonautologous Red Blood Cells into Peripheral Vein, Percutaneous Approach (ICD-10-PCS; principal; 2025-04-24)
PROC: 0DJ08ZZ Inspection of Upper Intestinal Tract, Via Natural or Artificial Opening Endoscopic (ICD-10-PCS; 2025-04-28)
DX: K92.2 Gastrointestinal hemorrhage, unspecified (principal); I50.23 Acute on chronic systolic (congestive) heart failure; J18.9 Pneumonia, unspecified organism; I13.0 Hypertensive heart and chronic kidney disease with heart failure and stage 1 through stage 4 chronic kidney disease, or unspecified chronic kidney disease; J96.11 Chronic respiratory failure with hypoxia; J91.8 Pleural effusion in other conditions classified elsewhere; E44.1 Mild protein-calorie malnutrition; N17.9 Acute kidney failure, unspecified; N18.4 Chronic kidney disease, stage 4 (severe); F41.9 Anxiety disorder, unspecified; I48.91 Unspecified atrial fibrillation; J44.9 Chronic obstructive pulmonary disease, unspecified; E11.22 Type 2 diabetes mellitus with diabetic chronic kidney disease; K21.9 Gastro-esophageal reflux disease without esophagitis; E78.5 Hyperlipidemia, unspecified; M41.86 Other forms of scoliosis, lumbar region; M81.0 Age-related osteoporosis without current pathological fracture; E11.21 Type 2 diabetes mellitus with diabetic nephropathy; I25.10 Atherosclerotic heart disease of native coronary artery without angina pectoris; G25.81 Restless legs syndrome; G20.A1 Parkinson's disease without dyskinesia, without mention of fluctuations; L89.152 Pressure ulcer of sacral region, stage 2; L89.322 Pressure ulcer of left buttock, stage 2; D63.8 Anemia in other chronic diseases classified elsewhere; K44.9 Diaphragmatic hernia without obstruction or gangrene; D53.9 Nutritional anemia, unspecified; Z88.8 Allergy status to other drugs, medicaments and biological substances; Z79.899 Other long term (current) drug therapy; Z79.01 Long term (current) use of anticoagulants; Z79.2 Long term (current) use of antibiotics; Z98.42 Cataract extraction status, left eye; Z98.41 Cataract extraction status, right eye; Z95.0 Presence of cardiac pacemaker; Z90.710 Acquired absence of both cervix and uterus; Z90.49 Acquired absence of other specified parts of digestive tract; Z83.3 Family history of diabetes mellitus; Z82.49 Family history of ischemic heart disease and other diseases of the circulatory system; Z80.8 Family history of malignant neoplasm of other organs or systems; Z68.28 Body mass index [BMI] 28.0-28.9, adult

== ENCOUNTER → 2025-05-31 | Outpatient (CLI) | payer MEDICARE ==
[~2025-05-31] MED LIST changes: +DULOXETINE HCL60 MG PO; +MAGNESIUM400 M1 PO; +PANTOPRAZOLE SO40 MG PO; +POTASSIUM CHLO10 ME5 PO; +TOUJEO SOL300 UNIT/1 SC
[2025-05-31 10:23] LABS: BASO # 0.1 10*3/uL (0.0-0.1); BASO % 0.6 % (0.0-1.0); EOS # 0.4 10*3/uL (0.0-0.4); EOS % 3.5 % (1.0-4.0); MEAN CELL VOLUME 95.5 fl (81.0-99.0); MEAN CORPUSCULAR HGB 29.8 pg (27.0-31.0); MEAN PLATELET VOLUME 10.2 fl (9.6-12.3); MONO # 0.7 10*3/uL (0.1-1.0); MONO % 6.7 % (3.0-9.0); NEUT # 9.0 10*3/uL (2.3-7.9); NEUT % 82.7 % (47.0-73.0); NUCLEATED RED BLOOD CELL 0.0 % (0.0-0.0); NUCLEATED RED BLOOD CELL 0.0 10*3/uL (0.0-0.0); PLATELET COUNT AUTOMATED 221 10*3/uL (130-400); RED CELL DISTRI WIDTH 14.9 % (0-14.5)
[2025-05-31 10:52] LABS: BUN 46.0 mg/dl (9-23)
== END | disposition home or self-care (01) ==
LOC: LAB 09:44
PROVIDERS: ATTEND Internal Medicine Nephrology
DX: Z11.59 Encounter for screening for other viral diseases (principal); N18.6 End stage renal disease; Z72.89 Other problems related to lifestyle; E55.9 Vitamin D deficiency, unspecified; I70.1 Atherosclerosis of renal artery; E11.9 Type 2 diabetes mellitus without complications; D63.1 Anemia in chronic kidney disease; I50.22 Chronic systolic (congestive) heart failure; I10 Essential (primary) hypertension; N25.81 Secondary hyperparathyroidism of renal origin; Z79.899 Other long term (current) drug therapy; E80.3 Defects of catalase and peroxidase

== ENCOUNTER 2025-06-02 11:44 | Inpatient (IN) | payer MEDICARE ==
[~2025-06-02] VITALS: Ht 160 cm; Wt 73.1 kg
[2025-06-02 12:00] VITALS: BP 150/60
[2025-06-02 12:33] LABS: BASO # 0.0 10*3/uL (0.0-0.1); BASO % 0.5 % (0.0-1.0); EOS # 0.8 10*3/uL (0.0-0.4); EOS % 10.6 % (1.0-4.0); MEAN CELL VOLUME 97.9 fl (81.0-99.0); MEAN CORPUSCULAR HGB 30.7 pg (27.0-31.0); MEAN PLATELET VOLUME 10.3 fl (9.6-12.3); MONO # 0.5 10*3/uL (0.1-1.0); MONO % 7.3 % (3.0-9.0); NEUT # 5.3 10*3/uL (2.3-7.9); NEUT % 70.8 % (47.0-73.0); NUCLEATED RED BLOOD CELL 0.0 % (0.0-0.0); NUCLEATED RED BLOOD CELL 0.0 10*3/uL (0.0-0.0); PLATELET COUNT AUTOMATED 262 10*3/uL (130-400); RED CELL DISTRI WIDTH 15.2 % (0-14.5)
[2025-06-02 12:43] LABS: BUN 44.0 mg/dl (9-23)
[2025-06-02 15:06] LABS: BILIRUBIN Negative (Negative); BLOOD Negative (Negative); CLARITY Clear (Clear); COLOR Yellow (Yellow); KETONE Negative (Negative); LEUKO ESTERASE Trace (Negative); NITRITE Negative (Negative); PH 5.0 (4.5-8.0); SPECIFIC GRAVITY 1.010 (1.001-1.030); UROBILINOGEN 0.2 E.U./dl (0.0-1.0)
[2025-06-02 15:28] LABS: BACTERIA 1+
[2025-06-02 16:00] VITALS: BP 160/78
[2025-06-02 16:15] VITALS: BP 160/78
[2025-06-02] MEDS ORDERED: DEXTROSE 50% 25 GM/50 ML VIAL IV PRN (17:15)
[2025-06-02] MEDS ORDERED: ACETAMINOPHEN 650 MG SUPP R PRN (17:15)
[2025-06-02] MEDS ORDERED: Acetaminophen/Hydrocodone 5 MG/325 MG TABLET PO PRN (17:15)
[2025-06-02] MEDS ORDERED: FUROSEMIDE 40 MG/4 ML VIAL IV ONE (17:55)
[2025-06-02] MEDS ORDERED: ISOSORBIDE DINITRATE 10 MG TAB PO SCH (18:00)
[2025-06-02] MEDS ORDERED: POTASSIUM CHLORIDE 10 MEQ TAB PO SCH (18:00)
[2025-06-02 20:00] VITALS: BP 153/57
[2025-06-03] VITALS: BP 152/57
[2025-06-03 06:03] LABS: BASO # 0.0 10*3/uL (0.0-0.1); BASO % 0.4 % (0.0-1.0); EOS # 1.0 10*3/uL (0.0-0.4); EOS % 11.6 % (1.0-4.0); MEAN CELL VOLUME 96.0 fl (81.0-99.0); MEAN CORPUSCULAR HGB 29.7 pg (27.0-31.0); MEAN PLATELET VOLUME 10.0 fl (9.6-12.3); MONO # 0.7 10*3/uL (0.1-1.0); MONO % 8.3 % (3.0-9.0); NEUT # 5.9 10*3/uL (2.3-7.9); NEUT % 70.5 % (47.0-73.0); NUCLEATED RED BLOOD CELL 0.0 % (0.0-0.0); NUCLEATED RED BLOOD CELL 0.0 10*3/uL (0.0-0.0); PLATELET COUNT AUTOMATED 255 10*3/uL (130-400); RED CELL DISTRI WIDTH 15.8 % (0-14.5)
[2025-06-03 06:51] LABS: BUN 43.0 mg/dl (9-23); SGPT/ALT 10.0 U/L (5-49)
[2025-06-03] MEDS ORDERED: INSULIN REGULAR, HUMAN 1 UNIT/0.01 ML SC SCH (07:30)
[2025-06-03 07:52] VITALS: BP 153/44
[2025-06-03] MEDS ORDERED: BUMETANIDE 1 MG/4 ML VIAL IV SCH ×2 (10:00→16:30)
[2025-06-03] MEDS ORDERED: SIMVASTATIN 20 MG TAB PO SCH ×2 (10:00→22:00)
[2025-06-03] MEDS ORDERED: MAGNESIUM OXIDE 400 MG TAB PO SCH (10:00)
[2025-06-03 12:00] VITALS: BP 166/58
[2025-06-03] MEDS ORDERED: NA FERRIC GLUC CMPL/SUCROSE 62.5 MG/5 ML VIAL IV SCH (12:02)
[2025-06-03] MEDS ORDERED: CHAIR CUSHION DEVICE ONE (13:36)
[2025-06-03] MEDS ORDERED: LEPTOSPERMUM HONEY 0.5 OZ TUBE T ONE (13:37)
[2025-06-03 16:00] VITALS: BP 151/46
[2025-06-03 20:00] VITALS: BP 160/52
[2025-06-04] VITALS: BP 148/72
[2025-06-04] MEDS ORDERED: INSULIN REGULAR, HUMAN 1 UNIT/0.01 ML SC SCH (07:30)
[2025-06-04 08:00] VITALS: BP 163/51
[2025-06-04 08:28] LABS: BASO # 0.0 10*3/uL (0.0-0.1); BASO % 0.4 % (0.0-1.0); EOS # 1.1 10*3/uL (0.0-0.4); EOS % 11.8 % (1.0-4.0); MEAN CELL VOLUME 97.1 fl (81.0-99.0); MEAN CORPUSCULAR HGB 30.0 pg (27.0-31.0); MEAN PLATELET VOLUME 9.4 fl (9.6-12.3); MONO # 0.7 10*3/uL (0.1-1.0); MONO % 8.1 % (3.0-9.0); NEUT # 6.6 10*3/uL (2.3-7.9); NEUT % 72.0 % (47.0-73.0); NUCLEATED RED BLOOD CELL 0.0 % (0.0-0.0); NUCLEATED RED BLOOD CELL 0.0 10*3/uL (0.0-0.0); PLATELET COUNT AUTOMATED 249 10*3/uL (130-400); RED CELL DISTRI WIDTH 15.9 % (0-14.5)
[2025-06-04 08:58] LABS: BUN 41.0 mg/dl (9-23)
[2025-06-04] MEDS ORDERED: NA FERRIC GLUC CMPL/SUCROSE 250 MG IV SCH (10:00)
[2025-06-04 12:00] VITALS: BP 163/53
[2025-06-04 16:00] VITALS: BP 157/48
[2025-06-04] MEDS ORDERED: BUMETANIDE 1 MG/4 ML VIAL IV SCH (16:30)
[2025-06-04] MEDS ORDERED: BISACODYL 5 MG TAB PO ONE (16:45)
[2025-06-04 20:00] VITALS: BP 165/57
[2025-06-05] VITALS: BP 153/56
[2025-06-05 06:48] VITALS: BP 168/53
[2025-06-05 07:52] LABS: BASO # 0.0 10*3/uL (0.0-0.1); BASO % 0.3 % (0.0-1.0); EOS # 1.0 10*3/uL (0.0-0.4); EOS % 12.0 % (1.0-4.0); MEAN CELL VOLUME 97.6 fl (81.0-99.0); MEAN CORPUSCULAR HGB 29.7 pg (27.0-31.0); MEAN PLATELET VOLUME 9.1 fl (9.6-12.3); MONO # 0.8 10*3/uL (0.1-1.0); MONO % 8.7 % (3.0-9.0); NEUT # 6.0 10*3/uL (2.3-7.9); NEUT % 69.8 % (47.0-73.0); NUCLEATED RED BLOOD CELL 0.0 % (0.0-0.0); NUCLEATED RED BLOOD CELL 0.0 10*3/uL (0.0-0.0); PLATELET COUNT AUTOMATED 238 10*3/uL (130-400); RED CELL DISTRI WIDTH 16.3 % (0-14.5)
[2025-06-05 08:00] VITALS: BP 175/55
[2025-06-05 08:15] LABS: BUN 41.0 mg/dl (9-23)
[2025-06-05 12:00] VITALS: BP 151/47
[2025-06-05 16:00] VITALS: BP 149/50
[2025-06-05 20:00] VITALS: BP 157/53
[2025-06-06] VITALS: BP 152/51
[2025-06-06 05:21] VITALS: BP 164/51
[2025-06-06 05:33] LABS: BUN 42 mg/dl (9-23); SGPT/ALT < 7 U/L (5-49)
[2025-06-06 06:10] LABS: BASO # 0.0 10*3/uL (0.0-0.1); BASO % 0.4 % (0.0-1.0); EOS # 1.0 10*3/uL (0.0-0.4); EOS % 13.0 % (1.0-4.0); MEAN CELL VOLUME 98.2 fl (81.0-99.0); MEAN CORPUSCULAR HGB 29.7 pg (27.0-31.0); MEAN PLATELET VOLUME 9.9 fl (9.6-12.3); MONO # 0.8 10*3/uL (0.1-1.0); MONO % 9.9 % (3.0-9.0); NEUT # 5.1 10*3/uL (2.3-7.9); NEUT % 65.8 % (47.0-73.0); NUCLEATED RED BLOOD CELL 0.0 % (0.0-0.0); NUCLEATED RED BLOOD CELL 0.0 10*3/uL (0.0-0.0); PLATELET COUNT AUTOMATED 245 10*3/uL (130-400); RED CELL DISTRI WIDTH 16.4 % (0-14.5)
[2025-06-06 08:00] VITALS: BP 165/56
[2025-06-06 12:00] VITALS: BP 160/44
[2025-06-06 16:00] VITALS: BP 148/44
[2025-06-06 19:44] VITALS: BP 158/50
[2025-06-07] VITALS: BP 162/54
[2025-06-07 05:52] VITALS: BP 169/59
[2025-06-07 06:13] LABS: BASO # 0.0 10*3/uL (0.0-0.1); BASO % 0.5 % (0.0-1.0); EOS # 1.0 10*3/uL (0.0-0.4); EOS % 12.6 % (1.0-4.0); MEAN CELL VOLUME 98.2 fl (81.0-99.0); MEAN CORPUSCULAR HGB 30.0 pg (27.0-31.0); MEAN PLATELET VOLUME 10.0 fl (9.6-12.3); MONO # 0.7 10*3/uL (0.1-1.0); MONO % 9.7 % (3.0-9.0); NEUT # 5.0 10*3/uL (2.3-7.9); NEUT % 65.2 % (47.0-73.0); NUCLEATED RED BLOOD CELL 0.0 % (0.0-0.0); NUCLEATED RED BLOOD CELL 0.0 10*3/uL (0.0-0.0); PLATELET COUNT AUTOMATED 226 10*3/uL (130-400); RED CELL DISTRI WIDTH 16.5 % (0-14.5)
[2025-06-07 06:28] LABS: BUN 41 mg/dl (9-23)
[2025-06-07 06:29] LABS: SGPT/ALT < 7 U/L (5-49)
[2025-06-07 08:00] VITALS: BP 156/47
[2025-06-07 12:00] VITALS: BP 157/57
== END 2025-06-07 13:25 | disposition home health service (06) | DRG 291 ==
LOC: ED 11:44 → 4E 14:27 → EDHOLD 14:27 → 4E 15:09
PROVIDERS: Nurse Practitioner Family; ADMIT Internal Medicine; ATTEND Internal Medicine
DX: I13.2 Hypertensive heart and chronic kidney disease with heart failure and with stage 5 chronic kidney disease, or end stage renal disease (principal); I50.33 Acute on chronic diastolic (congestive) heart failure; J96.21 Acute and chronic respiratory failure with hypoxia; N17.0 Acute kidney failure with tubular necrosis; N18.6 End stage renal disease; J91.8 Pleural effusion in other conditions classified elsewhere; I48.21 Permanent atrial fibrillation; J44.1 Chronic obstructive pulmonary disease with (acute) exacerbation; J98.11 Atelectasis; F41.9 Anxiety disorder, unspecified; E11.22 Type 2 diabetes mellitus with diabetic chronic kidney disease; K21.9 Gastro-esophageal reflux disease without esophagitis; E78.5 Hyperlipidemia, unspecified; M81.0 Age-related osteoporosis without current pathological fracture; G20.A1 Parkinson's disease without dyskinesia, without mention of fluctuations; Z96.642 Presence of left artificial hip joint; G25.81 Restless legs syndrome; I25.10 Atherosclerotic heart disease of native coronary artery without angina pectoris; L89.152 Pressure ulcer of sacral region, stage 2; L89.302 Pressure ulcer of unspecified buttock, stage 2; D64.9 Anemia, unspecified; Z88.8 Allergy status to other drugs, medicaments and biological substances; Z79.899 Other long term (current) drug therapy; Z79.01 Long term (current) use of anticoagulants; Z79.2 Long term (current) use of antibiotics; Z79.4 Long term (current) use of insulin; Z90.710 Acquired absence of both cervix and uterus; Z98.42 Cataract extraction status, left eye; Z98.41 Cataract extraction status, right eye; Z90.49 Acquired absence of other specified parts of digestive tract; Z83.3 Family history of diabetes mellitus; Z82.49 Family history of ischemic heart disease and other diseases of the circulatory system; Z80.8 Family history of malignant neoplasm of other organs or systems; Z99.2 Dependence on renal dialysis